=== PATIENT | female | born 1975 | race Caucasian/White ===

== ENCOUNTER 2019-01-16 15:08 | Inpatient (IN) ==
--- NOTE | 2019-01-16 16:26 | Emergency Department Note ---
ED Provider Note CHIEF COMPLAINT: Altered mental status HISTORY OF PRESENT ILLNESS: The patient is a 43 y/o female who presents to the ER because of AMS. The patient is at the [facility]. She has been there a month. Family came yesterday and felt that she was acting unusual. She has a history pyschosis CVA, and depression. She complains of a headache, fevers, chills, diaphoresis, visual changes, neck pain, chest pain, breathing difficulties, nausea, vomiting, abdominal pain, back pain, melena, hematochezia, urinary symptoms, numbness, weakness, . Her escort states this is the first day she noted a headache. The patient has tried the following for relief : she tried tylenol without relief. History is limited secondary to AMS. Pt denies LOC, lymphadenopathy, rash, or other complaints. REVIEW OF SYSTEMS: See HPI for pertinent positives and negatives. A total of ten systems were reviewed and were otherwise negative. PMHx/PSHx: CVA SOCIAL HISTORY: Patient lives with family PHYSICAL EXAM: GENERAL: Awake, alert, anxious-appearing, in no distress HENT: Normocephalic, atraumatic. Oropharynx unremarkable. EYES: PERRL. Normal conjunctiva. Sclera non-icteric. NECK: Inspection normal. Non-tender. Supple. No nuchal rigidity. FROM. No masses. RESPIRATORY: Clear to auscultation. No wheezes. No rales. Normal respiratory effort. CARDIAC: Normal rate. Normal rhythm. No murmurs. No rubs. Extremities warm and well perfused. Pulses equal. No JVD. GI: Soft, non-distended. No tenderness to palpation. No rebound or guarding. No masses. RECTAL: Deferred. MUSCULOSKELETAL: Atraumatic. Chest examination reveals no tenderness. The back is symmetrical on inspection without obvious abnormality. There is no CVA tenderness to palpation. No joint edema. LOWER EXTREMITIES: Calves are equal size bilaterally and non-tender. No edema. No discoloration. NEURO: Confused sensorium. No focal sensory or motor deficits noted. SKIN: No rash or jaundice noted. PSYCH: Tangential. Difficult to direct. No hallucinations. Mildly agitated. MEDICAL DECISION MAKING: Triage Nursing notes reviewed. The patient's presentation and history were concerning for altered mental statu s. Etiologies such as metabolic, infection, hypo/hyperglycemia, electrolyte abnormalities, cardiac sources, intracerebral event, toxicologic, neurologic, psychiatric, as well as others were entertained. Patient was evaluated as above. She was very tangential. She complained of headache and the caregiver noted that her abnormal behavior is been going on for weeks. She was more functional when she first arrived at the [facility] last month. As her mental status changed they did try a med holiday per the caregiver. She seemed to get somewhat better but then her condition deteriorated again. The patient answered yes to every review of systems question. A full metabolic and neurologic work-up was performed. A CT scan of her head was concerning as there were indeterminant findings with cortical abnormality and hypodense focus on the left side. The hypodense focus was in the occipital lobe. Radiology recommended contrast-enhanced MRI. TWELVE-LEAD ECG: Twelve-lead ECG performed and revealed normal sinus rhythm at 91 bpm. Prolonged QT present. Normal axis. No ST elevation. No ST depression. No PACs or PVCs. No ST elevation or depression. No prior for comparison. Imaging studies: Chest x-ray. Findings: A chest x-ray was performed and revealed no pneumothorax, effusion, infiltrate, pulmonary edema, free air under the diaphragm, or wide mediastinum. Impression: No acute disease. CT scan of the head: Per radiology impression: Reveals indeterminate findings requiring contrast-enhanced brain MRI. Limited cortical abnormality could represent age-indeterminate infarct among other possibilities. A round hypodense focus in the left occipital lobe could be artifactual or represent underlying lesion. The patient has an abnormal CT scan of the head and altered mental status that is been going on for some time. She did ask for me to discuss this with her brother Dr. Mustapha Leonard. I did discuss this with him and he was pleased with the work-up. I did inform him that we would be admitting the patient and performing an MRI as well as neurology consultation. He was in agreement. The patient was comfortable with the plan. [facility] was [facility]. The patient was evaluated in the ER and admitted for further management. IMPRESSION: Altered mental status Abnormal brain CT PLAN: Admitted Impression & Plan Altered mental status Past Med/Surg History Social History Preferred Language: Japanese Communication Ability: Effective Litigation Examiner Required: No Beliefs That Will Affect Care: Jainism Jainism Beliefs: Confucianism Current Living Situation: Parent Feels Safe at Home: Yes Safety Concerns: Feels Safe At This Time Smoking Status: Never smoker Hx Alcohol Use: No Hx Substance Use: No Results & Data Vital Signs Vital Signs - 24 hr 01/16/19 15:03 01/16/19 15:54 01/16/19 17:33 Temperature 36.7 C Temperature Source Oral Sepsis Recent Fever Within 48 Hours No Sepsis New/Unexplained Change in Mental Status No Sepsis Action Taken by Nursing No Action Required Pulse Rate 99 H Pulse Rate [Right Finger] 87 Respiratory Rate 20 20 Respiratory Effort / Characteristics Non-Labored Spontaneous Non-Labored Spontaneous Respiratory Depth Normal Normal Respiratory Pattern Regular Regular Blood Pressure 135/71 Blood Pressure [Right Arm] 136/74 Blood Pressure Mean 92 Blood Pressure Mean [Right Arm] 94 Blood Pressure Position Lying Blood Pressure Position [Right Arm] Lying Pulse Oximetry 97 98 96 Oxygen Delivery Method Room Air Room Air Room Air Oxygen Flow Rate 97 Laboratory Data Result diagrams: 01/16/19 16:55 01/16/19 16:55 Lab Results 01/16/19 01/16/19 01/16/19 Range/Units 15:40 16:55 16:55 WBC 6.49 (4.8-10.8) K/uL RBC 3.38 L (4.2-5.4) M/uL Hgb 9.7 L (12.0-16.0) g/dL Hct 31.6 L (37-47) % MCV 93.5 (80-100) fL MCH 28.7 (25-34) pg MCHC 30.7 L (32-36) g/dL RDW Std Deviation 51.1 H (36.4-46.3) fL RDW Coeff of Db 15.0 H (11.5-14.5) % Plt Count 195 (130-400) K/uL MPV 11.3 H (7.4-10.4) fL Immature Gran % (Auto) 0.2 % Neut % (Auto) 57.1 % Lymph % (Auto) 33.0 % Alexander % (Auto) 9.7 % Eos % (Auto) 0.0 % Baso % (Auto) 0.0 % Immature Gran # (Auto) 0.01 (0.00-0.02) K/uL Neut # (Auto) 3.71 (1.4-6.5) K/uL Lymph # (Auto) 2.14 (1.2-3.4) K/uL Alexander # (Auto) 0.63 H (0.11-0.59) K/uL Eos # (Auto) 0.00 (0-0.5) K/uL Baso # (Auto) 0.00 (0-0.2) K/uL Sodium 142 (136-145) mmol/L Potassium 3.8 (3.5-5.1) mmol/L Chloride 107 (98-107) mmol/L Carbon Dioxide 27 (21-32) mmol/L Anion Gap 8.0 (3-11) BUN 22 H (7-18) mg/dl Creatinine 0.75 (0.6-1.2) mg/dl Est Cr Clr Drug Dosing 95.0 ml/min Est GFR ( Amer) 111.6 Est GFR (Non-Af Amer) 96.3 BUN/Creatinine Ratio 29.2 H (10-20) Glucose 87 (70-99) mg/dl POC Glucose 108 H (70-99) Calcium 8.8 (8.5-10.1) mg/dl Total Bilirubin 0.3 (0.2-1) mg/dl AST 13 L (15-37) U/L ALT 18 (12-78) U/L Alkaline Phosphatase 69 (45-117) U/L Troponin I < 0.015 (0-0.045) ng/ml Total Protein 6.7 (6.4-8.2) gm/dl Albumin 3.1 L (3.4-5.0) gm/dl Globulin 3.6 (2.5-4.0) gm/dl Albumin/Globulin Ratio 0.9 (0.9-2) TSH 1.130 (0.300-4.500) uIu/ml Urine Color Urine Appearance (Clear) Urine pH (4.5-7.5) Ur Specific [place] (1.000-1.030) Urine Protein (Negative) Urine Glucose (UA) (Negative) Urine Ketones (Negative) Urine Blood (Negative) Urine Nitrite (Negative) Urine Bilirubin (Negative) Urine Urobilinogen (Negative) Ur Leukocyte Esterase (Negative) 01/16/19 Range/Units 18:32 WBC (4.8-10.8) K/uL RBC (4.2-5.4) M/uL Hgb (12.0-16.0) g/dL Hct (37-47) % MCV (80-100) fL MCH (25-34) pg MCHC (32-36) g/dL RDW Std Deviation (36.4-46.3) fL RDW Coeff of Db (11.5-14.5) % Plt Count (130-400) K/uL MPV (7.4-10.4) fL Immature Gran % (Auto) % Neut % (Auto) % Lymph % (Auto) % Alexander % (Auto) % Eos % (Auto) % Baso % (Auto) % Immature Gran # (Auto) (0.00-0.02) K/uL Neut # (Auto) (1.4-6.5) K/uL Lymph # (Auto) (1.2-3.4) K/uL Alexander # (Auto) (0.11-0.59) K/uL Eos # (Auto) (0-0.5) K/uL Baso # (Auto) (0-0.2) K/uL Sodium (136-145) mmol/L Potassium (3.5-5.1) mmol/L Chloride (98-107) mmol/L Carbon Dioxide (21-32) mmol/L Anion Gap (3-11) BUN (7-18) mg/dl Creatinine (0.6-1.2) mg/dl Est Cr Clr Drug Dosing ml/min Est GFR ( Amer) Est GFR (Non-Af Amer) BUN/Creatinine Ratio (10-20) Glucose (70-99) mg/dl POC Glucose (70-99) Calcium (8.5-10.1) mg/dl Total Bilirubin (0.2-1) mg/dl AST (15-37) U/L ALT (12-78) U/L Alkaline Phosphatase (45-117) U/L Troponin I (0-0.045) ng/ml Total Protein (6.4-8.2) gm/dl Albumin (3.4-5.0) gm/dl Globulin (2.5-4.0) gm/dl Albumin/Globulin Ratio (0.9-2) TSH (0.300-4.500) uIu/ml Urine Color Yellow Urine Appearance Clear (Clear) Urine pH 6.5 (4.5-7.5) Ur Specific [place] 1.019 (1.000-1.030) Urine Protein Negative (Negative) Urine Glucose (UA) Negative (Negative) Urine Ketones Negative (Negative) Urine Blood Negative (Negative) Urine Nitrite Negative (Negative) Urine Bilirubin Negative (Negative) Urine Urobilinogen Negative (Negative) Ur Leukocyte Esterase Negative (Negative) Administered Medications Acetaminophen (Tylenol) 650 mg PO Q4H PRN PRN Reason: Pain or Fever Stop: 02/15/19 21:34 Last Admin: 01/16/19 22:40 Dose: 650 mg Documented by: [id number] Hydrocodone Bitart/Acetaminophen ([place] 5/325) 1 tab PO Q6H MARIANN Stop: 01/30/19 21:59 Last Admin: 01/16/19 22:24 Dose: 1 tab Documented by: [id number] Aripiprazole (Abilify) 15 mg PO HS MARIANN Stop: 02/15/19 21:34 Last Admin: 01/16/19 22:24 Dose: 15 mg Documented by: [id number] Benztropine Mesylate (Cogentin) 1 mg PO BID MARIANN Stop: 02/15/19 21:34 Last Admin: 01/16/19 22:24 Dose: 1 mg Documented by: [id number] Diphenhydramine HCl (Benadryl Capsule) 50 mg PO HS PRN PRN Reason: agitation Stop: 02/15/19 21:34 Last Admin: 01/16/19 22:40 Dose: 50 mg Documented by: [id number] Escitalopram Oxalate (Lexapro Tab) 30 mg PO HS MARIANN Stop: 02/15/19 21:44 Last Admin: 01/16/19 22:23 Dose: 30 mg Documented by: [id number] Ferrous Sulfate (Feosol) 325 mg PO BID MARIANN Stop: 02/15/19 21:34 Last Admin: 01/16/19 22:25 Dose: 325 mg Documented by: [id number] Lorazepam (Ativan) 1 mg PO TID MARIANN Stop: 02/15/19 21:34 Last Admin: 01/16/19 22:42 Dose: 1 mg Documented by: [id number] Discharge Plan Visit Data *Final* Discharge Date/Time: 01/16/19 20:54 Chief Complaint: Altered Mental Status Stated Complaint: CONFUSION ED Provider: Jose Randle Discharge Problem: Altered mental status Patient Disposition: Admitted As Inpatient Discharge Instructions Interventions: ED Discharge Assessment Last Done: 01/16/19 20:54
--- NOTE | 2019-01-16 16:42 | XRay Report ---
XR chest 1V portable CLINICAL HISTORY: 43 years-old Female presenting with weakness. TECHNIQUE: Portable upright AP view of the chest was obtained. COMPARISON: None. FINDINGS: Cardiac silhouette top normal in size likely related to AP technique. No focal opacity. No large effu miguel or pneumothorax. Osseous structures normal. Upper abdomen normal. IMPRESSION: 1. No acute cardiopulmonary disease. Electronically signed by: Reyes Hernandez M.D. 01/16/2019 4:40 PM
--- NOTE | 2019-01-16 16:52 | CT Scan Report ---
CT head/brain wo con CLINICAL HISTORY: 43 years-old Female presenting with AMS. TECHNIQUE: Multidetector CT imaging of the head was performed without the use of intravenous contrast . IV contrast: None. One or more dose lowering techniques were used consistent with the principles of ALARA (as low as reasonably achievable), including automatic exposure control, mA or kV adjustment t o individual patient size, and/or use of iterative reconstruction. COMPARISON: None. CT DOSE (mGy.cm): The estimated cumulative dose is 537.48 mGy.cm. FINDINGS: Provider Relations Coordinator topogram: Unremarkable. Ventricles and sulci normal in size. No hemorrhage. Limited cortical infarct in the posterior left te mporal occipital region. The acuity of this is uncertain as there is no associated ex vacuo dilatatio n of the atrium of the left lateral ventricle. A separate round hypodense focus is noted in the left occipital lobe (series 2 image 11), which is subcentimeter. No mass effect or midline shift. No extra -axial fluid collection. Paranasal sinuses and mastoid air cells clear. Calvarium intact. IMPRESSION: 1. Indeterminate findings require contrast-enhanced brain MRI. Limited cortical abnormality could re present an age-indeterminate infarct among other possibilities. Round hypodense focus in the left occ ipital lobe could be artifactual or represent an underlying lesion. 2. No hemorrhage. Electronically signed by: Reyes Hernandez M.D. 01/16/2019 4:51 PM
[2019-01-16 17:30] LABS: Hematocrit (blood only) 31.6 % (37-47); Hemoglobin 9.7 g/dL (12.0-16.0); Immature Granulocytes # (auto) 0.01 K/uL (0.00-0.02); Immature Granulocytes % (auto) 0.2 %; Lymphocytes # (auto) 2.14 K/uL (1.2-3.4); Mean Corpuscular Hemoglobin 28.7 pg (25-34); Mean Corpuscular Hgb Conc 30.7 g/dL (32-36); Mean Corpuscular Volume 93.5 fL (80-100); Mean Platelet Volume 11.3 fL (7.4-10.4); Monocytes # (auto) 0.63 K/uL (0.11-0.59); Monocytes % (auto) 9.7 %; Neutrophils # (auto) 3.71 K/uL (1.4-6.5); Neutrophils % (auto) 57.1 %; Platelet Count 195 K/uL (130-400); RDW Standard Deviation 51.1 fL (36.4-46.3); Red Blood Count 3.38 M/uL (4.2-5.4); White Blood Count 6.49 K/uL (4.8-10.8)
[2019-01-16 17:44] LABS: Alanine Aminotransferase 18 U/L (12-78); Albumin Level 3.1 gm/dl (3.4-5.0); Aspartate Aminotransferase 13 U/L (15-37); BUN Creatinine Ratio 29.2 (10-20); Blood Urea Nitrogen 22 mg/dl (7-18); Calcium 8.8 mg/dl (8.5-10.1); Carbon Dioxide 27 mmol/L (21-32); Chloride 107 mmol/L (98-107); Est GFR (African American) 111.6; Est GFR (Non-African American) 96.3; Glucose 87 mg/dl (70-99); Potassium 3.8 mmol/L (3.5-5.1); Sodium 142 mmol/L (136-145)
[2019-01-16 17:55] LABS: Albumin Globulin Ratio 0.9 (0.9-2); Alkaline Phosphatase 69 U/L (45-117); Bilirubin,Total 0.3 mg/dl (0.2-1); Globulin 3.6 gm/dl (2.5-4.0); Total Protein 6.7 gm/dl (6.4-8.2); Troponin I < 0.015 ng/ml (0-0.045)
[2019-01-16 19:09] LABS: Appearance Urine Clear (Clear); Bilirubin Urine Negative (Negative); Blood Urine Negative (Negative); Color Urine Yellow; Glucose Urine UA Negative (Negative); Ketones Urine Negative (Negative); Leukocyte Esterase Urine Negative (Negative); Nitrite Urine Negative (Negative); Protein Urine Negative (Negative); Specific Gravity Urine 1.019 (1.000-1.030); Urobilinogen Urine Negative (Negative); pH Urine 6.5 (4.5-7.5)
[2019-01-16] MEDS ORDERED: NITROGLYCERIN SL 0.4 MG/TAB TAB SL PRN (21:35)
[2019-01-16] MEDS ORDERED: ALBUTEROL HFA 8 GM INHALER INH PRN (21:35)
[2019-01-16] MEDS: ESCITALOPRAM OXALATE 10 MG TAB PO SCH (22:23)
[2019-01-16] MEDS: ARIPiprazole 15 MG TAB PO SCH (22:24)
[2019-01-16] MEDS: BENZTROPINE MESYLATE 1 MG TAB PO SCH (22:24)
[2019-01-16] MEDS: HYDROCODONE/ACETAMOPHEN 5/325MG TAB PO SCH (22:24)
[2019-01-16] MEDS: FERROUS SULFATE 325 MG TAB PO SCH (22:25)
[2019-01-16] MEDS: LORazepam 1 MG TAB PO SCH ×2 (22:27→22:42)
[2019-01-16] MEDS: ACETAMINOPHEN 325 MG TAB PO PRN (22:40)
--- NOTE | 2019-01-16 23:51 | History and Physical Report ---
DATE OF ADMISSION: 01/16/2019 CHIEF COMPLAINT: Confusion. HISTORY OF PRESENT ILLNESS: This is a 43-year-old female with past medical history significant for fibromyalgia, asthma, thoracic outlet syndrome, reflux sympathetic dystrophy, irritable bowel syndrome, history of anemia, unclear etiology, history of head trauma as a child, history of cerebrovascular accident in 2018, was brought in from [facility] because of confusion. As per brother who is a psychiatrist, the patient had stroke in 2018. She has some aphasia from the stroke, but otherwise, she has no residual weakness. She drives the car. She used to live with her parents. She was doing fine until 6 months ago. She used to have some migraines, from her stroke, she used to treat with Imitrex. Then she started developing paranoia and some confusion. She was seen by neurologist. Brain scan was done. At that time, they thought there was no new stroke and she was evaluated by psychiatry and at that time she got admitted to the [facility] in early weeks of November. In the [facility],because she was getting more confused, they cut down on her medications, but then seemed to be improved, but again she got more confused. Her brother went to see her yesterday. Yesterday, she was getting more paranoid thinking and more delusional with auditory and visual delusions. He was worried about hydrocephalus. She was also having some ambulatory dysfunction. She was having a shuffling gait.And she was brought here for further evaluation. As per brother, she recently also had anemia with hemoglobin of 8, they could not find a cause and started her on iron supplement so her hemoglobin came up at more than 9. Because of anemia, aspirin was stopped. Lipitor was stopped because of thought of statin causing some dementia. Recently, she was also started on Abilify .As per brother patient still on Cogentin. Question of not getting thyroid medication at [facility] but thyroid stimulating hormone level is normal here in the hospital. The patient is alert and awake, oriented to name and place, Knows her birthday.But could not tell the dates .Keeps on talking about her parents.Patient states that she has headaches and she has been on Imitrex but that was not given to her at [facility].. She states she has fibromyalgia. She has pain all over and she wants pain medications. She keeps on talking somewhat tangentially. She is not focused to answer the questions. She states she has asthma. It gets activated when she inhales strong perfumes or scents. Her appetite is good and she is eating fine. No difficulty swallowing. She states she has some dry cough and some mild postnasal drip. She complains of both the knee pains. As per the caregiver also she is having ambulatory dysfunction with knee pain. No recent fever or chills. When asked about other symptoms, she talks about her parents. So, I could not get much history from the patient. Most of the history we got from the brother and the caregiver. Currently resting comfortably and hemodynamically stable. ALLERGIES: IODINE, RED DYE AND LATEX. PAST MEDICAL HISTORY: As mentioned above. PAST SURGICAL HISTORY: She has had hysterectomy because of heavy bleeding a couple of years ago, bilateral knee surgeries and right-sided rib taken out. MEDICATIONS: Currently, she is on Abilify 15 mg p.o. at bedtime, lorazepam, chlorpromazine 100 mg p.o. p.r.n., Cogentin 1 mg p.o. b.i.d., Benadryl 50 mg p.o. p.r.n., Lexapro 30 mg p.o. at bedtime, ferrous sulfate 325 mg p.o. b.i.d., hydrocodone/acetaminophen 1 tablet p.o. q. 6 hours p.r.n., Synthroid 50 mcg p.o. daily, Ativan 1 mg p.o. t.i.d., Protonix 40 mg p.o. daily and Topamax 100 mg p.o. daily. FAMILY HISTORY: Noncontributory. REVIEW OF SYSTEMS: As per HPI. Rest of the review of symptoms could not be obtained as the patient is somewhat confused. PHYSICAL EXAMINATION: GENERAL: The patient is alert and awake, oriented to name and place only. VITAL SIGNS: Temperature 36.7, pulse 87, respiratory rate 20, blood pressure 136/74 and oxygen 96% on room air. HEENT: No pallor. No icterus. Pupils are sluggish to react to light. NECK: No JVD. No neck masses. No carotid bruits. Supple. CARDIOVASCULAR: S1, S2 heard. Murmur in aortic area is heard. LUNGS: Clear to auscultation bilaterally. No accessory muscle use. No wheezing. No crackles. ABDOMEN: Soft. Bowel sounds present. No distention. No guarding. No rigidity. CENTRAL NERVOUS SYSTEM: Alert and awake and oriented x2. Moves extremities. No pronator drift. Coordination of movements normal. Elyzbs-wl-[id number] test normal. Klru-nb-asif test. Position sense intact. Sensation is intact. EXTREMITIES: No edema. No erythema. LABORATORY DATA: WBC 6.4, hemoglobin 9.7, hematocrit 37.6 and platelets 195. Sodium 142, potassium 3.8, chloride 107, bicarbonate 27, BUN 22, creatinine 0.7, serum glucose 87, calcium 8.8, total bilirubin 0.3, AST 13, ALT 18 and alkaline phosphatase 169. Troponin I less than 0.015. Thyroid stimulating hormone 1.1. Urinalysis negative. Chest x-ray, no acute cardiopulmonary process seen. Electrocardiogram, normal sinus rhythm with rate of 90, no acute ST-T wave seen, prolonged QTC of 487. CT of the head indeterminate findings could represent an age indeterminate infarct among other possibilities, hypodense focus in the left occipital lobe could be artifactual or represent an underlying lesion, no hemorrhage. ASSESSMENT AND PLAN: This 43-year-old female with a history of depression, anxiety, possible paranoia who is currently at [facility] since early November who was brought in because of her brother who is a psychiatrist found the patient to be more confused, paranoid and delusional with auditory and visual delusions for further evaluation. 1. Confusion, encephalopathy, talking tangentially, history of depression and anxiety and paranoia in [facility] since early November . Medications are adjusted but but as she was getting more confused and delusional, brother who is a psychiatrist advised to get further evaluation. CT scan showed questionable new lesions, hypodense lesion in the occipital lobe and recommended MRI scan with contrast which we will do. The patient and brother are agreeable. We will continue current medications and we will consult psychiatry and neurology in a.m. for further recommendations or evaluations. Recently, her B1 levels were done as an outpatient were okay and her thyroid stimulating hormone level was fine.Ammonia levels were fine. One- one observation. 2. History of stroke, was on statin, lisinopril and aspirin in the past but aspirin was stopped because of anemia and statin was stopped because of questionable dementia. We will await Neurology evaluation. 3. Hypothyroidism, continue Synthroid. 4. Fibromyalgia and chronic pain,. On pain meds. 5. Anemia, etiology unclear. We will continue iron supplements for now. Had hysterectomy about couple of years ago secondary to bleeding as per brother.Will check Hemoccult 6. Depression, continue Lexapro. 7. Gastroesophageal reflux disease, continue Protonix. 8. Anxiety, continue Ativan. 9. Migraines, on Topamax, but trying to taper it as it can cause anemia as per brother.. 10. Deep venous thrombosis prophylaxis, sequential compression devices for now. 11. Disposition, admit to Med/Surg Tele. Level 1 full code. Social Service to help with discharge planning. Addendum: Non sustained v.tach. Will follow am labs. Ordered echo. Continue tele monitoring. MTDD
[2019-01-17] MEDS ORDERED: INFLUENZA ADMINISTRATION CHARGE ONE (01:00)
[2019-01-17] MEDS ORDERED: INFLUENZA VIRUS QUAD VACCINE 0.5 ML SYR IM ONE (01:00)
[2019-01-17] MEDS: HYDROCODONE/ACETAMOPHEN 5/325MG TAB PO SCH ×5 (04:00→22:51)
[2019-01-17] MEDS: ACETAMINOPHEN 325 MG TAB PO PRN (04:00)
[2019-01-17 06:10] LABS: Hemoglobin 9.2 g/dL (12.0-16.0); Immature Granulocytes # (auto) 0.01 K/uL (0.00-0.02); Immature Granulocytes % (auto) 0.2 %; Lymphocytes # (auto) 1.52 K/uL (1.2-3.4); Mean Corpuscular Hemoglobin 28.9 pg (25-34); Mean Corpuscular Hgb Conc 31.7 g/dL (32-36); Mean Corpuscular Volume 91.2 fL (80-100); Mean Platelet Volume 9.9 fL (7.4-10.4); Monocytes # (auto) 0.66 K/uL (0.11-0.59); Monocytes % (auto) 10.8 %; Platelet Count 199 K/uL (130-400); RDW Coefficient of Variation 14.8 % (11.5-14.5); RDW Standard Deviation 49.5 fL (36.4-46.3); Red Blood Count 3.18 M/uL (4.2-5.4); White Blood Count 6.09 K/uL (4.8-10.8)
[2019-01-17] MEDS: LEVOTHYROXINE SODIUM 50 MCG TABLET PO SCH (06:40)
[2019-01-17] MEDS: POLYETHYLENE (MIRALAX) 17 GM PACK PO PRN (06:45)
[2019-01-17 06:50] LABS: BUN Creatinine Ratio 27.4 (10-20); Calcium 8.8 mg/dl (8.5-10.1); Est GFR (African American) 123.6; Est GFR (Non-African American) 106.7; Potassium 3.6 mmol/L (3.5-5.1)
[2019-01-17] MEDS: BENZTROPINE MESYLATE 1 MG TAB PO SCH ×2 (08:10→20:21)
[2019-01-17] MEDS: LORazepam 1 MG TAB PO SCH ×3 (08:22→20:21)
[2019-01-17] MEDS: FERROUS SULFATE 325 MG TAB PO SCH ×2 (08:22→20:21)
[2019-01-17] MEDS: PANTOprazole 40 MG TAB PO SCH (08:23)
[2019-01-17] MEDS: TOPIRAMATE 100 MG TAB PO SCH (08:23)
--- NOTE | 2019-01-17 08:28 | Hospitalist Progress Note ---
Date of Service January 17, 2019 Subjective BROTHER'S NAME: DR.DAVID SUHAS CAMARGO (PSYCHIATRIST) CELL NO: [phone] PAGER NO: [phone]. Results & Data Vital Signs (Past 12 Hours) Vital Signs Temp Pulse Pulse Resp BP BP Pulse Ox 01/17/19 07:54 36.7 C 80 24 121/76 96 01/16/19 23:35 36.6 C 90 18 144/74 H 97 01/16/19 22:37 36.8 C 97 H 16 120/75 97 01/16/19 22:23 96 H 01/16/19 21:46 99 H
--- NOTE | 2019-01-17 08:28 | Hospitalist Progress Note ---
Date of Service January 17, 2019 Subjective Brothers name: Dr. Mustapha Leonard MD(psychiatrist) ph no: cell no: [phone] PAGER NO: [phone]. Results & Data Vital Signs (Past 12 Hours) Vital Signs Temp Pulse Pulse Resp BP BP Pulse Ox 01/17/19 07:54 36.7 C 80 24 121/76 96 01/16/19 23:35 36.6 C 90 18 144/74 H 97 01/16/19 22:37 36.8 C 97 H 16 120/75 97 01/16/19 22:23 96 H 01/16/19 21:46 99 H
--- NOTE | 2019-01-17 13:40 | Psychiatric Consultation ---
Date of Consultation January 17, 2019 Impression / Recommendations Impression 43-year-old female admitted medically on 01/16/2019 after presenting to the ED from the [facility]. It was reported that the patient has been hospitalized [facility] for over a month, and family grew concerned about patient "acting unusual." Psychiatric consultation is requested to evaluate patient for altered mental status, given recent history of psychiatric treatment. Patient is a rather poor historian, preoccupied with concerns that this provider is not able to predict her favorite animal and that this provider did not "pass the test." Patient is highly labile and tangential. Psychiatric nurse liaison was able to speak with staff from the [facility] regarding her history of treatment. It is reported that the patient had presented to their facility with confusion and paranoia. They report that she was already "altered" when she presented to their facility, and had no response to various medication trials. Patient had been tried on haloperidol, bupropion, quetiapine, and venlafaxine -all with little benefit. It was reported the patient was given a "medication holiday" after multiple failed medication trials. It is reported that her condition improved slightly with only as needed use of chlorpromazine. This improvement was not sustained, and she further decompensated, leading to initiation of aripiprazole on 01/08/2019. Concerns for a more significant issue were increased when patient had frequent episodes of incontinence of bowel and bladder, was increasingly confused, and demonstrated changes in her ambulatory function and gait. Pt is on several psychiatric medications that are centrally acting and could reasonably lead to confusion. The concern at this time, is that we do not have a clear timeline of when the change in her mental status began, as it seems to predate her admission to the [facility]. We will attempt to gather additional information from outpatient supports in order to better determine potential causes for her altered mental status. Agree with neurology consultation for recommendations as well. Patient is a poor historian; however, there are reports of olfactory and visual hallucinations which generally predict a more organic etiology for mental status change. At this time, we would recommend continuing her current medication regimen as initiated at [place]. We will continue attempts to gather collateral information, and provide additional recommendations as they are available. Ultimately, discharge plan would be for patient to return back to the [facility] after she is medically cleared, in order to obtain her belongings and be formally discharged from their facility. We appreciate the opportunity to participate in the care of this patient. Please reach out to our service with any additional questions. Dr. Ct Urena was directly involved in review and discussion of the patient's case and participated in medical decision making regarding treatment recommendations. Psych History Identifying Data 43-year-old female admitted medically on 01/16/2019 after [facility] ED [facility]. It was reported that family had noticed unusual changes in the patient, and were concerned about other medical concerns leading to her confusion and altered state. Psychiatric consultation was requested to evaluate the patient for altered mental status, in light of ongoing inpatient psychiatric treatment. Reliable, but limited, history is obtained from hospital documentation. The patient herself is a poor historian and not able to offer additional details at time of encounter. Chief Complaint "I'm doing ok. Have a seat, we can all just hang out." History of Present Illness Jess Leonard is a 43-year-old female admitted medically on 01/16/2019 after presenting to the ED from the [facility]. ED documentation suggest the family had been visiting the patient and was concerned about unusual behaviors and confusion. Family had requested transfer to a medical facility for further workup. Patient is not able to provide reliable history at this time; however, hospital documentation has been reviewed. Upon entering patient's room, she is found to be speaking comfortably with her one-to-one aide. Patient invites this provider to sit with them and talks more. Patient states that she is not aware as to why she was admitted, but does know that she had been hospitalized at the [facility] prior to coming to the hospital. She is unaware of how long she has been at the [facility]. Patient is rather tangential during our conversation, often interrupting this provider with request that this provider squeeze a stress ball that has been provided to her. Patient informs this provider that when she squeezes the stress ball it says "bull sh*t." This provider stated that although she believes that the patient hears this, this provider does not hear the same response to squeezing the stress ball. Patient becomes abruptly tearful and upset stating "you do not believe me, you do not believe me." This provider's attempted to console the patient, which did not not offer much benefit. Between a one-to-one aide and this provider, multiple attempts were made to assist patient with calming her breathing and participating in a clear conversation. Patient states that she has a group of friends she calls "[employer]", she becomes abruptly irritable when this provider states she is not sure what that is and asks the patient to explain more. Patient states that this is a group of people that she talks to online, but is unwilling to provide any additional information. The patient suddenly request that her brother be called in the presence of this provider, was not able to understand that this provider did not have a release or her brother's phone number at that moment in time. Patient was asked at that time if she had signed a release for us to speak with her brother, to which she becomes rather angry stating "he has signed the hippo, and I am a zebra." She begins to tell this provider that zebras are black if you "rub them the other way." She then demands her belongings, showing this provider a T-shirt with an iguana pictured on the front. As if quizzing this provider, she demands to know "if you could be any animal, what would it be? And tell me why. And tell me what color. Then tell me what animal I would be." This provider attempted to answer the patient's question, and asked the patient what animal she would be. Patient becomes acutely angry and upset, telling her one-to-one aide that this provider "did not pass the test." She continues to request to return to the [facility], stating "I want to go back there. That is where my dad is. I miss him so much." Patient remained labile, demonstrating tearfulness, anger, and anxiety during the remainder of our visit. As it was clear this provider's questions were upsetting the patient, this provider decided to end the session. Past Psychiatric History Previous Psych History: Patient psychiatric history is largely unclear. It is believed that patient may have diagnoses of anxiety and depression; however, there is no reported history of behaviors similar to what she is now presenting with. Allergies Allergy/AdvReac Type Severity Reaction Status Date / Time Iodine and Iodide Containing Allergy Severe Anaphylaxis Unverified 01/17/19 11:00 Produc red dye Allergy Severe Anaphylaxis Unverified 01/17/19 11:02 latex Allergy Intermediate Rash Unverified 01/17/19 11:02 shellfish derived Allergy Intermediate Rash Unverified 01/17/19 11:02 Home Medications Home Medications Medication Instructions Recorded Confirmed Type Cogentin 1 mg PO BID 01/16/19 01/16/19 History aripiprazole [Abilify] 15 mg PO HS 01/16/19 01/16/19 History chlorpromazine 100 mg PO DIRECTED PRN 01/16/19 01/16/19 History diphenhydramine HCl [Benadryl] 50 mg PO DIRECTED PRN 01/16/19 01/16/19 History escitalopram oxalate 30 mg PO HS 01/16/19 01/16/19 History ferrous sulfate 325 mg PO BID 01/16/19 01/16/19 History hydrocodone-acetaminophen [[place]] 1 tab PO Q6H 01/16/19 01/16/19 History levothyroxine [Synthroid] 50 mcg PO DAILY 01/16/19 01/16/19 History lorazepam 1 mg PO TID 01/16/19 01/16/19 History pantoprazole [Protonix] 40 mg PO DAILY 01/16/19 01/16/19 History topiramate 100 mg PO DAILY 01/16/19 01/16/19 History Family History It is reported that the patient's father may have been diagnosed with schizophrenia Substance Abuse History It is reported the patient denied substance use Patient History Social History Preferred Language: Andorran Communication Ability: Effective Crm Specialist Required: No Beliefs That Will Affect Care: Denominational Denominational Beliefs: Scientologist Current Living Situation: Parent Feels Safe at Home: Yes Safety Concerns: Feels Safe At This Time Smoking Status: Never smoker Hx Alcohol Use: No Hx Substance Use: No Physical Exam Psychiatric: Orientation: alert, oriented to person and oriented to place; + uncooperative Patient does not appear to be oriented to time or event Apperance: appropriately dressed (In hospital gown), + disheveled and appeared stated age Obese appearing female, appearing rather anxious during assessment. Patient is appropriately dressed for setting, wearing a hospital gown. She is seated in a bedside chair. Patient appears disheveled, with likely less than ideal hygiene. Her hair is pulled back in a messy ponytail. Eye Contact: + fair eye contact Motor Behavior: + psychomotor agitation (Patient is appearing restless and anxious, frequently repositioning in chair) Speech: + loud speech (With irritable and angry tone) Affect: + anxious affect, + tearful affect, + labile affect and + angry affect Mood: + anxious mood ("My meds are all wrong, I had an anxiety attack") Thought Process: + tangential thought process; + thought process not goal directed, + thought process not linear or logical and + thought process not clear or coherent Thought processes highly disorganized Unable to gather significant history regarding presence of hallucinations due to patient's limited cooperation during assessment. Visual, auditory, and olfactory hallucinations were reported in prior documentation. Cognition: language grossly intact; + remote memory not intact and + attention not intact Insight: + impaired insight Judgement: + impaired judgement Vital Signs (Past 24 Hours): Last Vital Signs Temp 36.6 C 01/17/19 11:34 Pulse 89 01/17/19 11:34 Resp 24 01/17/19 11:34 BP 120/69 01/17/19 11:34 Pulse Ox 97 01/17/19 11:34 Review of Systems Constitutional: denied Cardiovascular: denied Respiratory: reports shortness of breath, as conversation is making her visibly upset Gastrointestinal: denied Neurological: denied Psychiatric: denies symptoms other than stated above Total of at least 10 systems reviewed, pertinent positives as above and in HPI. Results & Data Medications Administered Acetaminophen (Tylenol) 650 mg PO Q4H PRN PRN Reason: Pain or Fever Stop: 02/15/19 21:34 Last Admin: 01/17/19 04:00 Dose: 650 mg Documented by: [id number] Admin: 01/16/19 22:40 Dose: 650 mg Documented by: [id number] Hydrocodone Bitart/Acetaminophen (Fordyce 5/325) 1 tab PO Q6H MARIANN Stop: 01/30/19 21:59 Last Admin: 01/17/19 11:23 Dose: 1 tab Documented by: [id number] Admin: 01/17/19 04:00 Dose: 1 tab Documented by: [id number] Admin: 01/16/19 22:24 Dose: 1 tab Documented by: [id number] Aripiprazole (Abilify) 15 mg PO HS MARIANN Stop: 02/15/19 21:34 Last Admin: 01/16/19 22:24 Dose: 15 mg Documented by: [id number] Benztropine Mesylate (Cogentin) 1 mg PO BID MARIANN Stop: 02/15/19 21:34 Last Admin: 01/17/19 08:10 Dose: Not Given Documented by: [id number] Admin: 01/16/19 22:24 Dose: 1 mg Documented by: [id number] Diphenhydramine HCl (Benadryl Capsule) 50 mg PO HS PRN PRN Reason: agitation Stop: 02/15/19 21:34 Last Admin: 01/16/19 22:40 Dose: 50 mg Documented by: [id number] Escitalopram Oxalate (Lexapro Tab) 30 mg PO HS MARIANN Stop: 02/15/19 21:44 Last Admin: 01/16/19 22:23 Dose: 30 mg Documented by: [id number] Ferrous Sulfate (Feosol) 325 mg PO BID MARIANN Stop: 02/15/19 21:34 Last Admin: 01/17/19 08:22 Dose: 325 mg Documented by: [id number] Admin: 01/16/19 22:25 Dose: 325 mg Documented by: [id number] Levothyroxine Sodium (Synthroid) 50 mcg PO DAILYBB MARIANN Stop: 02/16/19 06:29 Last Admin: 01/17/19 06:40 Dose: 50 mcg Documented by: [id number] Lorazepam (Ativan) 1 mg PO TID MARIANN Stop: 02/15/19 21:34 Last Admin: 01/17/19 13:14 Dose: 1 mg Documented by: [id number] Admin: 01/17/19 08:22 Dose: 1 mg Documented by: [id number] Admin: 01/16/19 22:42 Dose: 1 mg Documented by: [id number] Pantoprazole Sodium (Protonix) 40 mg PO DAILY MARIANN Stop: 02/16/19 08:59 Last Admin: 01/17/19 08:23 Dose: 40 mg Documented by: [id number] Polyethylene Glycol (Miralax Powder Packet) 17 gm PO DAILY PRN PRN Reason: Constipation Stop: 02/15/19 21:34 Last Admin: 01/17/19 06:45 Dose: 17 gm Documented by: [id number] Topiramate (Topamax) 100 mg PO DAILY MARIANN Stop: 02/16/19 08:59 Last Admin: 01/17/19 08:23 Dose: 100 mg Documented by: [id number] Coding Level of Care Code 85625 U Intl Hosp Care Lvl 2
--- NOTE | 2019-01-17 14:09 | Neurology Consultation ---
Date of Consultation January 17, 2019 Assessment & Plan (1) Altered mental status: 1. MRI brain with and without ordered 2. psychiatry for evaluation of medications - will stay on current medications for now 3. PT/OT speech for any discharge needs 4. aid for patient safety 5. not sure what her baseline is but she is very tangential with conversion. 6. may need to restart aspirin 81 mg -plt 199 7. further recommendations after MRI Supervising Physician Co-Signing Physician Notes I have seen and discussed above patient with Dr Sarah Granger, neurology See my note of today.BRANDEE Granger MD History of Present Illness Reason for Consultation: [facility] Requesting Physician: Henok Moncada MD Attending Physician: Henok Moncada MD History of Present Illness Jess is a 43 year old female with PMH of fibromyalgia, asthma, thoracic outlet syndrome, reflux sympathetic dystrophy, irritable bowel syndrome, anemia, history of head trauma as a child, CVA in 2017, was transferred here from the [facility] because of confusion. She drives the car and was doing fine until 6 months ago when she developed some paranoia and some confusion. She had an evaluation by neurology and psychiatry and was admitted to the [facility] in early weeks of November. She was getting more confused and some of her medications were decreased but she didn't improve. She was delusional and had a shuffling gait. She was on aspirin since the previous stroke but that was stopped due to some anemia and Lipitor due to some dementia symptoms. She is currently sitting bedside and eating lunch there is an aid in the room with her. When asked why she is here she talks very tangentially recalling being at [facility]. denies CP, SOB, abdominal pain, one sided weakness, numbness tingling, N, V, swallowing issues, vision changes. She states she hurts all over because of her fibromyalgia. Allergies Allergy/AdvReac Type Severity Reaction Status Date / Time Iodine and Iodide Containing Allergy Severe Anaphylaxis Unverified 01/17/19 11:00 Produc red dye Allergy Severe Anaphylaxis Unverified 01/17/19 11:02 latex Allergy Intermediate Rash Unverified 01/17/19 11:02 shellfish derived Allergy Intermediate Rash Unverified 01/17/19 11:02 Home Medications Home Medications Medication Instructions Recorded Confirmed Type Cogentin 1 mg PO BID 01/16/19 01/16/19 History aripiprazole [Abilify] 15 mg PO HS 01/16/19 01/16/19 History chlorpromazine 100 mg PO DIRECTED PRN 01/16/19 01/16/19 History diphenhydramine HCl [Benadryl] 50 mg PO DIRECTED PRN 01/16/19 01/16/19 History escitalopram oxalate 30 mg PO HS 01/16/19 01/16/19 History ferrous sulfate 325 mg PO BID 01/16/19 01/16/19 History hydrocodone-acetaminophen [[place]] 1 tab PO Q6H 01/16/19 01/16/19 History levothyroxine [Synthroid] 50 mcg PO DAILY 01/16/19 01/16/19 History lorazepam 1 mg PO TID 01/16/19 01/16/19 History pantoprazole [Protonix] 40 mg PO DAILY 01/16/19 01/16/19 History topiramate 100 mg PO DAILY 01/16/19 01/16/19 History Patient History Social History Preferred Language: Hebrew Communication Ability: Effective Echo Technologist Required: No marital status: Single Current Living Situation: Parent Feels Safe at Home: Yes Safety Concerns: Feels Safe At This Time Smoking Status: Never smoker Hx Alcohol Use: No Hx Substance Use: No Physical Exam Physical Exam: Physical Exam: Constitutional: appearance over nourished, healthy Ears, Nose, Mouth and Throat: mucous membranes moist, no injection and skin normal, eyes normal Cardiovascular: normal S-1 and S-2 and regular rate and rhythm Respiratory: clear to auscultation (CTA) and no rales, rhonchi or wheeze Musculoskeletal: no peripheral edema and good distal pulses Skin: no stigmata of neurocutaneous disease noted and normal and intact Eyes: extraocular muscles intact (EOMI) and pupils equal, round and reactive to light (PERRL), gross peripheral vision intact NEUROLOGIC EXAMINATION: Mental status: Alert and interactive Oriented to 2019, hospital Oriented to person Speech some word finding issues, identifies pen, stethoscope, Cranial Nerves smile eye brow raise symmetric Reflexes: Deep tendon reflexes were symmetrical and graded 2/5. Sensory: no sensory deficits to light cool and vibration Coordination: finger to nose, heel to dewitt intact Gait/Stance: Posture normal, sitting bed side Motor: Negative for pronator drift of out stretched arms with eyes closed. Strength: hand automotive manufacturer biceps, triceps 5/5 bilaterally hip flex patellar/plantar flex ext 5/5 Results & Data Vital Signs (Past 12 Hours) Vital Signs Temp Pulse Resp BP BP Pulse Ox 01/17/19 11:34 36.6 C 89 24 120/69 97 01/17/19 07:54 36.7 C 80 24 121/76 96 Laboratory Results Abnormal lab results 01/16/19 01/16/19 01/16/19 Range/Units 15:40 16:55 16:55 RBC 3.38 L (4.2-5.4) M/uL Hgb 9.7 L (12.0-16.0) g/dL Hct 31.6 L (37-47) % MCHC 30.7 L (32-36) g/dL RDW Std Deviation 51.1 H (36.4-46.3) fL RDW Coeff of Db 15.0 H (11.5-14.5) % MPV 11.3 H (7.4-10.4) fL [place] # (Auto) 0.63 H (0.11-0.59) K/uL Chloride (98-107) mmol/L BUN 22 H (7-18) mg/dl BUN/Creatinine Ratio 29.2 H (10-20) POC Glucose 108 H (70-99) AST 13 L (15-37) U/L Albumin 3.1 L (3.4-5.0) gm/dl 01/17/19 01/17/19 Range/Units 05:23 05:23 RBC 3.18 L (4.2-5.4) M/uL Hgb 9.2 L (12.0-16.0) g/dL Hct 29.0 L (37-47) % MCHC 31.7 L (32-36) g/dL RDW Std Deviation 49.5 H (36.4-46.3) fL RDW Coeff of Db 14.8 H (11.5-14.5) % MPV (7.4-10.4) fL [place] # (Auto) 0.66 H (0.11-0.59) K/uL Chloride 109 H (98-107) mmol/L BUN (7-18) mg/dl BUN/Creatinine Ratio 27.4 H (10-20) POC Glucose (70-99) AST (15-37) U/L Albumin (3.4-5.0) gm/dl Diagnostic Findings TTE- EF 60-65%, No ASD CT head-Indeterminate findings require contrast-enhanced brain MRI. Limited cortical abnormality could represent an age-indeterminate infarct among other possibilities. Round hypodense focus in the left occipital lobe could be artifactual or represent an underlying lesion. No hemorrhage. CXR- No acute cardiopulmonary disease.
[2019-01-17] MEDS ORDERED: GADOBUTROL 65ML VIAL IV PRN (17:20)
--- NOTE | 2019-01-17 17:30 | Magnetic Resonance Report ---
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 TECHNIQUE: Multisequence, multiplanar MR imaging of the brain was performed before and after the admi nistration of intravenous contrast. IV contrast: 8 mL of Gadavist. COMPARISON: Noncontrast CT head performed yesterday. FINDINGS: Localizer images: Unremarkable. Bone marrow signal intensity within the calvarium within normal limits. Normal midline sagittal structures. Ventricles and sulci normal in size. No mass effect or midline sh ift. No restricted diffusion or hemorrhage. T-2/flair hyperintensity involving the posterior left tem poral region with mild enlargement of associated sulci most suggestive of a chronic infarct. No assoc iated abnormal enhancement. Few nonspecific foci of subcortical and periventricular white matter hype rattenuation. No abnormal parenchymal enhancement. No extra-axial fluid collection. T2 skull base flow voids preserved. IMPRESSION: 1. Chronic infarct suspected in the posterior left temporal region. 2. No abnormal enhancement or acute intracranial pathology. 3. Limited punctate scattered subcortical and periventricular white matter T2/FLAIR hyperintensity m ost likely early chronic small vessel ischemic change though this would be atypical given the patient 's younger age. Additional differential considerations include chronic migraines among other less lik amy etiologies. Electronically signed by: Reyes Hernandez M.D. 01/17/2019 5:28 PM
[2019-01-17] MEDS: ESCITALOPRAM OXALATE 10 MG TAB PO SCH (20:21)
[2019-01-17] MEDS: ARIPiprazole 15 MG TAB PO SCH (20:21)
--- NOTE | 2019-01-17 21:22 | Progress Note ---
DATE: 01/17/2019 HISTORY OF PRESENT ILLNESS: I discussed the patient's case with Ms. Sarah Conteh today, but the patient was not available at bedside. To review her history, she has a history of fibromyalgia, asthma, thoracic outlet syndrome, reflux, RSD, irritable bowel, head trauma, stroke in 2018 who was transferred from the [facility] due to confusion, sounds as if this was subacute. She was admitted to the [facility]. Multiple medications were changed. Apparently, her aspirin has been on hold due to anemia. When Sarah examined her, she found her to be awake and alert, tangential, potentially having visual hallucinations, but her exam appearing nonfocal. She did not appear to be delirious although I cannot comment on that myself. I think it is appropriate in this circumstance to obtain an MRI of the brain, EEG to rule out seizure, especially in light of her history of stroke. Records should attempt to be obtained from her hospitalization for stroke. Resumption of antiplatelet therapy when safe. We will reassess the patient tomorrow.
--- NOTE | 2019-01-17 22:15 | Hospitalist Progress Note ---
Date of Service January 17, 2019 Assessment & Plan (1) Confusion: (2) Altered mental status: 43-year-old female with a hx of depression,anxiety, possible paranoia who has been at [facility] since early November and who was brought in because of her brother who is a psychiatrist found the patient to be more confused, paranoid and delusional 1. Confusion, encephalopathy,history of depression and anxiety and paranoia - in [facility] since early November - Medications are adjusted but but as she was getting more confused and delusional, brother who is a psychiatrist advised to get further evaluation. CT scan showed questionable new lesions, hypodense lesion in the occipital lobe and recommended MRI scan - MRI ordered - We will continue current medications and we will consult psychiatry and neurology for further recommendations/evaluations - B1 levels wnl (as an outpatient) and her TSH wnl, ammonia level wnl - plan to obtain outside medical records and collateral information - 1 on observation Update: Neurology agrees w/ MRI and EEG, will cont. to follow 2. History of stroke - was on statin, lisinopril and aspirin in the past but aspirin was stopped because of anemia and statin was stopped because of questionable dementia, will discuss resuming meds w/neurologist 3. Hypothyroidism -continue Synthroid 4. Fibromyalgia and chronic pain -On pain meds 5. Anemia, etiology unclear - will continue iron supplements for now - s/p hysterectomy several years ago secondary to bleeding (as per brother) - will check Hemoccult 6. Depression - continue Lexapro 7. GERD - continue Protonix 8. Anxiety - continue Ativan 9. Migraines - on Topamax, (but trying to taper it as it can cause anemia as per brother.) DVT prophylaxis: SCDs for now Subjective Pt is lying in in bed, in no acute distress. Per nursing staff pt was agitated earlier today but after eating she was more calm. She is just about to get brain MRI. Pt denies any fever, chills, shortness of breath, chest pain, headache, change in vision, abd. pain, nausea or vomiting. She is pleasant overall but tangential in her answers, does not answer all questions appropriately. Review of Systems Constitutional: no fever and no chills Respiratory: no cough, no dyspnea and no pain on inspiration Cardiovascular: no chest pain, no radiating jaw, neck or arm pain, no dyspnea on exertion, no palpitations and no edema Gastrointestinal: no abdominal pain, no nausea and no vomiting Physical Exam Physical Exam: GENERAL: young female lying in bed in NAD, she is alert and awake, oriented to name and place only HEENT: NC/AT, EOMI, No pallor. No icterus. Pupils are sluggish to react to light. NECK: No JVD. No neck masses. No carotid bruits. Supple. CARDIOVASCULAR: S1, S2 heard. Soft murmur in aortic area is heard. LUNGS: Clear to auscultation bilaterally. No accessory muscle use. No wheezing. No crackles. ABDOMEN: Soft. Bowel sounds present. Obese, No distention. NEURO/ PSYCH: Alert and awake and oriented x2. Moves all extremities spont aneously. No facial asymmetry, speech fluent but tangential. Sensation is intact. Results & Data Vital Signs (Past 12 Hours) Vital Signs Temp Pulse Resp BP BP Pulse Ox 01/17/19 19:33 36.6 C 98 H 20 120/71 98 01/17/19 15:10 36.7 C 93 H 22 121/68 94 01/17/19 11:34 36.6 C 89 24 120/69 97 Laboratory Results 01/17/19 01/17/19 01/17/19 Range/Units 05:23 05:23 05:23 WBC 6.09 (4.8-10.8) K/uL RBC 3.18 L (4.2-5.4) M/uL Hgb 9.2 L (12.0-16.0) g/dL Hct 29.0 L (37-47) % MCV 91.2 (80-100) fL MCH 28.9 (25-34) pg MCHC 31.7 L (32-36) g/dL RDW Std Deviation 49.5 H (36.4-46.3) fL RDW Coeff of Db 14.8 H (11.5-14.5) % Plt Count 199 (130-400) K/uL MPV 9.9 (7.4-10.4) fL Immature Gran % (Auto) 0.2 % Neut % (Auto) 64.0 % Lymph % (Auto) 25.0 % [place] % (Auto) 10.8 % Eos % (Auto) 0.0 % Baso % (Auto) 0.0 % Immature Gran # (Auto) 0.01 (0.00-0.02) K/uL Neut # (Auto) 3.90 (1.4-6.5) K/uL Lymph # (Auto) 1.52 (1.2-3.4) K/uL [place] # (Auto) 0.66 H (0.11-0.59) K/uL Eos # (Auto) 0.00 (0-0.5) K/uL Baso # (Auto) 0.00 (0-0.2) K/uL Sodium 142 (136-145) mmol/L Potassium 3.6 (3.5-5.1) mmol/L Chloride 109 H (98-107) mmol/L Carbon Dioxide 26 (21-32) mmol/L Anion Gap 7.0 (3-11) BUN 18 (7-18) mg/dl Creatinine 0.66 (0.6-1.2) mg/dl Est Cr Clr Drug Dosing 108.0 ml/min Est GFR ( Amer) 123.6 Est GFR (Non-Af Amer) 106.7 BUN/Creatinine Ratio 27.4 H (10-20) Glucose 98 (70-99) mg/dl Calcium 8.8 (8.5-10.1) mg/dl Phosphorus 3.8 (2.5-4.9) mg/dl Magnesium 2.0 (1.8-2.4) mg/dl Medications Administered Current Inpatient Medications Acetaminophen (Tylenol) 650 mg PO Q4H PRN PRN Reason: Pain or Fever Stop: 02/15/19 21:34 Last Admin: 01/17/19 04:00 Dose: 650 mg Documented by: Hydrocodone Bitart/Acetaminophen ([place] 5/325) 1 tab PO Q6H MARIANN Stop: 01/30/19 21:59 Last Admin: 01/17/19 15:37 Dose: 1 tab Documented by: Albuterol (Ventolin Hfa) 2 puffs INH Q4H PRN PRN Reason: Shortness Of Breath Or Wheezing Stop: 02/15/19 21:34 Aripiprazole (Abilify) 15 mg PO HS MARIANN Stop: 02/15/19 21:34 Last Admin: 01/17/19 20:21 Dose: 15 mg Documented by: Benztropine Mesylate (Cogentin) 1 mg PO BID MARIANN Stop: 02/15/19 21:34 Last Admin: 01/17/19 20:21 Dose: 1 mg Documented by: Chlorpromazine HCl (Thorazine) 100 mg PO HS PRN PRN Reason: agitation Stop: 02/15/19 21:34 Diphenhydramine HCl (Benadryl Capsule) 50 mg PO HS PRN PRN Reason: agitation Stop: 02/15/19 21:34 Last Admin: 01/16/19 22:40 Dose: 50 mg Documented by: Escitalopram Oxalate (Lexapro Tab) 30 mg PO HS MARIANN Stop: 02/15/19 21:44 Last Admin: 01/17/19 20:21 Dose: 30 mg Documented by: Ferrous Sulfate (Feosol) 325 mg PO BID MARIANN Stop: 02/15/19 21:34 Last Admin: 01/17/19 20:21 Dose: 325 mg Documented by: Gadobutrol (Gadavist 65ml) 8 ml IV ONCE PRN PRN Reason: Interaction Checking Stop: 01/21/19 17:19 Last Admin: 01/17/19 17:21 Dose: 8 ml Documented by: Levothyroxine Sodium (Synthroid) 50 mcg PO DAILYBB MARIANN Stop: 02/16/19 06:29 Last Admin: 01/17/19 06:40 Dose: 50 mcg Documented by: Lorazepam (Ativan) 1 mg PO TID MARIANN Stop: 02/15/19 21:34 Last Admin: 01/17/19 20:21 Dose: 1 mg Documented by: Nitroglycerin (Nitrostat) 0.4 mg SL UD PRN PRN Reason: Chest Pain Stop: 02/15/19 21:34 Pantoprazole Sodium (Protonix) 40 mg PO DAILY MARIANN Stop: 02/16/19 08:59 Last Admin: 01/17/19 08:23 Dose: 40 mg Documented by: Polyethylene Glycol (Miralax Powder Packet) 17 gm PO DAILY PRN PRN Reason: Constipation Stop: 02/15/19 21:34 Last Admin: 01/17/19 06:45 Dose: 17 gm Documented by: Topiramate (Topamax) 100 mg PO DAILY MARIANN Stop: 02/16/19 08:59 Last Admin: 01/17/19 08:23 Dose: 100 mg Documented by:
[2019-01-18] MEDS: ACETAMINOPHEN 325 MG TAB PO PRN (01:07)
[2019-01-18] MEDS: HYDROCODONE/ACETAMOPHEN 5/325MG TAB PO SCH ×4 (04:56→21:14)
[2019-01-18 06:10] LABS: Hematocrit (blood only) 31.9 % (37-47); Hemoglobin 10.1 g/dL (12.0-16.0); Immature Granulocytes # (auto) 0.01 K/uL (0.00-0.02); Immature Granulocytes % (auto) 0.2 %; Lymphocytes # (auto) 1.43 K/uL (1.2-3.4); Lymphocytes % (auto) 23.7 %; Mean Corpuscular Hemoglobin 29.4 pg (25-34); Mean Corpuscular Hgb Conc 31.7 g/dL (32-36); Mean Corpuscular Volume 92.7 fL (80-100); Monocytes # (auto) 0.56 K/uL (0.11-0.59); Monocytes % (auto) 9.3 %; Neutrophils # (auto) 4.04 K/uL (1.4-6.5); Neutrophils % (auto) 66.8 %; Platelet Count 216 K/uL (130-400); RDW Coefficient of Variation 15.1 % (11.5-14.5); RDW Standard Deviation 51.1 fL (36.4-46.3); Red Blood Count 3.44 M/uL (4.2-5.4); White Blood Count 6.04 K/uL (4.8-10.8)
[2019-01-18] MEDS: LEVOTHYROXINE SODIUM 50 MCG TABLET PO SCH (06:22)
[2019-01-18 06:48] LABS: BUN Creatinine Ratio 24.2 (10-20); Calcium 9.4 mg/dl (8.5-10.1); Creatinine Clr Calc Pharmacy 113.1 ml/min; Est GFR (African American) 125.6; Est GFR (Non-African American) 108.3; Magnesium 2.1 mg/dl (1.8-2.4); Potassium 3.7 mmol/L (3.5-5.1)
[2019-01-18] MEDS: TOPIRAMATE 100 MG TAB PO SCH (09:10)
[2019-01-18] MEDS: PANTOprazole 40 MG TAB PO SCH (09:10)
[2019-01-18] MEDS: FERROUS SULFATE 325 MG TAB PO SCH ×2 (09:10→21:15)
[2019-01-18] MEDS: BENZTROPINE MESYLATE 1 MG TAB PO SCH ×2 (09:11→21:15)
[2019-01-18] MEDS: LORazepam 1 MG TAB PO SCH ×3 (09:13→21:13)
[2019-01-18] MEDS: POLYETHYLENE (MIRALAX) 17 GM PACK PO PRN (09:19)
[2019-01-18 12:52] LABS: Folate (Folic Acid) 8.55 ng/ml (>5.38)
--- NOTE | 2019-01-18 13:00 | Hospitalist Progress Note ---
Date of Service January 18, 2019 Assessment & Plan (1) Confusion: History of Depression and Anxiety History of Stroke in the past History of Migraine Headaches History of seizures -This is a patient from the [facility] under 304 with history of stroke in 2018 and because of progressive problems with behavioral health, patient was transferred for workup to rule out potentially reversible causes of confusion and behavioral health issues -Patient has been evaluated by inpatient psychiatry which is gathering patient's medical health records from the [facility] and noted that patient has failed trials of multiple anti-depressants and anti-psychotics -Patient also seen by neurology and brain MRI completed on 01/17/19 -Brain MRI shows chronic posterior left temporal infarct -Brain MRI also shows limited punctuate scattered subcortical and periventricular white matter which is described by radiologist as unusual for her age to have early chronic small vessel ischemic changes -patient's blood pressure appears to be normotensive -patient does appear to be on topiramate for migraines -echocardiogram is TTE but does not show evidence for cardiac emboli -patient's brother Mustapha affirms history of seizures of the patient, EEG performed and is read as normal -patint's family also pushing for rule out normal pressure hydrocephalus, patient agreed to lumbar puncture, hospitalist ordered request fro radiology to do lumbar puncture with opening pressure and broadly send panels including viral or multiple sclerosis panels -can consider restarting aspirin as stroke prevention after lumbar puncture performed -normal B12, normal folate levels -follow up RPR -will try to have patient off 1 to 1 observation, substitute close checks -appreciate further psychiatry recommendations on mood modifying medications Hypothyroidism -continue home dose Levothyroxine -TSH within euthyroid parameters Anemia -Hemoglobin stable as high 9s or 10 Fibromyalgia -pain control -PT/OT evaluations GERD -pantoprazole DVT prophylaxis: SCDs for now Contacts: Linsey (mother) [phone], Yannick (father), Mustapha (brother, physician) Subjective Hospitalist met patient for first time. She is cooperative on exam. Patient's nurse reports that patient has been able to ambulate initially with unsteady gait. Patient corroborates that walks to bathroom with assistance. She defers ambulatory exam when asked by hospitalist to see her gait. She also claims she accidentally dialed 911 on the phone. Discussed with patient and her family members on the phone including Linsey (Mother [phone]) and Mustapha (Brother, physician) and in agreement about pursuing lumbar puncture. Patient agrees and she signs consent form. denies headache today. denies shortness of breath. denies abdominal pain. denies chest pain. denies vomiting. denies problems with eating Review of Systems Review of Systems: All systems reviewed & are unremarkable except as noted in HPI & below Physical Exam Eyes: PERRL, conjunctivae normal, anicteric sclerae EOM intact bilaterally ENMT: external ear and nose normal, oropharynx normal Neck: normal visual inspection Respiratory: normal respiratory effort, lungs clear to auscultation Cardiovascular: Rate/Rhythm: regular rate and regular rhythm Gastrointestinal (Abdomen): normal bowel sounds, soft, nontender, no hepatosplenomegaly Musculoskeletal: patient uses left arm to raise the right arm to sign the lumbar puncture consent form Neurologic: moves all extremities Psychiatric: Orientation: alert Results & Data Vital Signs (Past 12 Hours) Vital Signs Temp Pulse Resp BP Pulse Ox 01/18/19 11:03 36.8 C 111 H 18 133/73 94 01/18/19 09:28 36.6 C 101 H 18 139/85 94
--- NOTE | 2019-01-18 13:16 | Electroencephalogram ---
EEG Procedure Note Date of Service January 18, 2019 Start / End Times Start Time: 621 End Time: 641 Referring Physician Sarah Granger MD History Possible seizures Home Medication List Home Medications Medication Instructions Recorded Confirmed Type Cogentin 1 mg PO BID 01/16/19 01/16/19 History aripiprazole [Abilify] 15 mg PO HS 01/16/19 01/16/19 History chlorpromazine 100 mg PO DIRECTED PRN 01/16/19 01/16/19 History diphenhydramine HCl [Benadryl] 50 mg PO DIRECTED PRN 01/16/19 01/16/19 History escitalopram oxalate 30 mg PO HS 01/16/19 01/16/19 History ferrous sulfate 325 mg PO BID 01/16/19 01/16/19 History hydrocodone-acetaminophen [[place]] 1 tab PO Q6H 01/16/19 01/16/19 History levothyroxine [Synthroid] 50 mcg PO DAILY 01/16/19 01/16/19 History lorazepam 1 mg PO TID 01/16/19 01/16/19 History pantoprazole [Protonix] 40 mg PO DAILY 01/16/19 01/16/19 History topiramate 100 mg PO DAILY 01/16/19 01/16/19 History Inpatient Medication List Hydrocodone Bitart/Acetaminophen ([place] 5/325) 1 tab PO Q6H MARIANN Stop: 01/30/19 21:59 Last Admin: 01/18/19 09:13 Dose: 1 tab Documented by: [id number] Admin: 01/18/19 04:56 Dose: Not Given Documented by: [id number] Admin: 01/17/19 22:51 Dose: 1 tab Documented by: [id number] Admin: 01/17/19 15:37 Dose: 1 tab Documented by: [id number] Admin: 01/17/19 11:23 Dose: 1 tab Documented by: [id number] Admin: 01/17/19 04:00 Dose: 1 tab Documented by: [id number] Admin: 01/16/19 22:24 Dose: 1 tab Documented by: [id number] Aripiprazole (Abilify) 15 mg PO HS MARIANN Stop: 02/15/19 21:34 Last Admin: 01/17/19 20:21 Dose: 15 mg Documented by: [id number] Admin: 01/16/19 22:24 Dose: 15 mg Documented by: [id number] Benztropine Mesylate (Cogentin) 1 mg PO BID MARIANN Stop: 02/15/19 21:34 Last Admin: 01/18/19 09:11 Dose: 1 mg Documented by: [id number] Admin: 01/17/19 20:21 Dose: 1 mg Documented by: [id number] Admin: 01/17/19 08:10 Dose: Not Given Documented by: [id number] Admin: 01/16/19 22:24 Dose: 1 mg Documented by: [id number] Diphenhydramine HCl (Benadryl Capsule) 50 mg PO HS PRN PRN Reason: agitation Stop: 02/15/19 21:34 Last Admin: 01/16/19 22:40 Dose: 50 mg Documented by: [id number] Escitalopram Oxalate (Lexapro Tab) 30 mg PO HS MARIANN Stop: 02/15/19 21:44 Last Admin: 01/17/19 20:21 Dose: 30 mg Documented by: [id number] Admin: 01/16/19 22:23 Dose: 30 mg Documented by: [id number] Ferrous Sulfate (Feosol) 325 mg PO BID MARIANN Stop: 02/15/19 21:34 Last Admin: 01/18/19 09:10 Dose: 325 mg Documented by: [id number] Admin: 01/17/19 20:21 Dose: 325 mg Documented by: [id number] Admin: 01/17/19 08:22 Dose: 325 mg Documented by: [id number] Admin: 01/16/19 22:25 Dose: 325 mg Documented by: [id number] Levothyroxine Sodium (Synthroid) 50 mcg PO DAILYBB MARIANN Stop: 02/16/19 06:29 Last Admin: 01/18/19 06:22 Dose: Not Given Documented by: [id number] Admin: 01/17/19 06:40 Dose: 50 mcg Documented by: [id number] Lorazepam (Ativan) 1 mg PO TID MARIANN Stop: 02/15/19 21:34 Last Admin: 01/18/19 09:13 Dose: 1 mg Documented by: [id number] Admin: 01/17/19 20:21 Dose: 1 mg Documented by: [id number] Admin: 01/17/19 13:14 Dose: 1 mg Documented by: [id number] Admin: 01/17/19 08:22 Dose: 1 mg Documented by: [id number] Admin: 01/16/19 22:42 Dose: 1 mg Documented by: [id number] Pantoprazole Sodium (Protonix) 40 mg PO DAILY MARIANN Stop: 02/16/19 08:59 Last Admin: 01/18/19 09:10 Dose: 40 mg Documented by: [id number] Admin: 01/17/19 08:23 Dose: 40 mg Documented by: [id number] Polyethylene Glycol (Miralax Powder Packet) 17 gm PO DAILY PRN PRN Reason: Constipation Stop: 02/15/19 21:34 Last Admin: 01/18/19 09:19 Dose: 17 gm Documented by: [id number] Admin: 01/17/19 06:45 Dose: 17 gm Documented by: [id number] Topiramate (Topamax) 100 mg PO DAILY [facility] Stop: 02/16/19 08:59 Last Admin: 01/18/19 09:10 Dose: 100 mg Documented by: [id number] Admin: 01/17/19 08:23 Dose: 100 mg Documented by: [id number] Discontinued Medications Acetaminophen (Tylenol) 650 mg PO Q4H PRN PRN Reason: Pain or Fever Stop: 02/15/19 21:34 Last Admin: 01/18/19 01:07 Dose: 650 mg Documented by: [id number] Admin: 01/17/19 04:00 Dose: 650 mg Documented by: [id number] Admin: 01/16/19 22:40 Dose: 650 mg Documented by: [id number] Gadobutrol (Gadavist 65ml) 8 ml IV ONCE PRN PRN Reason: Interaction Checking Stop: 01/21/19 17:19 Last Admin: 01/17/19 17:21 Dose: 8 ml Documented by: [id number] Influenza Virus Vaccine Quadrival (Flucelvax Quad Vaccine) 0.5 ml IM .ONCE ONE Stop: 01/17/19 01:01 Last Admin: 01/17/19 15:37 Dose: 0.5 ml Documented by: [id number] Description This EEG was done as a bedside and unfortunately is hampered by the presence of muscle movement artifacts sufficienDuring these intervals there is evidence for a well-developed background rhythm in the alpha range of up to 9 Hz maximum frequency and 20 V maximum amplitude. This is maximum posterior head regions and is symmetrical. Theta activity seen centrally. Beta activity seen bifrontally. Photic stimulation provokes minimal driving response At no time is there evidence for unequivocal potentially epileptogenic activity amounts of interpretable recording however are available for analysis. Interpretation This is a technically limited but otherwise normal EEG during wakefulness Clinical Correlation Essentially normal EEG allowing for muscle no evidence for focal or generalized changes or for potentially epileptogenic activity Jose Johnson MD
--- NOTE | 2019-01-18 15:01 | Fluoroscopy Report ---
FL lumbar puncture diagnostic CLINICAL HISTORY: 43 years-old Female presenting with lumbar puncture, opening pressure, lab specimen s. COMPARISON: None. PROCEDURE: The procedure, risks and benefits were discussed with the patient including the risk of spinal headac he, bleeding and infection. The patient agreed to the procedure and informed written consent was obta ined. The procedure was performed by Dr. Hernandez following a timeout. The L3-4 interspinous space was targeted. Skin overlying the space was prepped and draped in the usua l aseptic fashion and local anesthesia was achieved with 1% lidocaine. Under intermittent fluoroscopi c guidance, a 20-gauge x 3 1/2 in. Sprotte needle was inserted into the thecal sac. Opening pressure was obtained in prone positioning, which measured 14 cmH2O. A total of 8 mL of clear , colorless cerebral spinal fluid was obtained and spread amongst 4 vials. The patient tolerated the procedure well. There were no immediate complications. The specimens were s ent to the laboratory at the request of the referring physician. Reference range: Normal opening pressure 6-25 cmH2O (95% reference interval for lateral decubitus positioning). Fluoroscopy dosage (mGy): Not available. Fluoroscopy time: 0.2 minutes. Number or time of high level fluoroscopy (HLF), digital spot, or digital subtraction images: 0. IMPRESSION: 1. Successful fluoroscopic guided lumbar puncture with removal of 8 mL of clear, colorless cerebral spinal fluid. No immediate complications. 2. Normal opening pressure. Electronically signed by: Reyes Hernandez M.D. 01/18/2019 3:00 PM
--- NOTE | 2019-01-18 15:08 | Neurology Progress Note ---
Date of Service January 18, 2019 Assessment & Plan (1) Altered mental status: 1. MRI brain with and without - no acute findings 2. psychiatry for evaluation of medications - will stay on current medications for now 3. PT/OT speech for any discharge needs 4. aid for patient safety 5. not sure what her baseline is but she is very tangential with conversion. She seems to mimics stroke patients and walking she mimics also 6. if no contra indications to aspirin 81 mg -plt 199- would restart 7. LP done today to r/o infections and NPH however to r/o NPH you need a protocol with high volume tap and PT involved with evaluation prior to the tap and after the tap 8. she is from the [facility] if NPH is still suspected [facility] may have a program to evaluate. Supervising Physician Co-Signing Physician Notes I have seen and discussed above patient with Dr Sarah Granger, neurology Subjective Jess is a 43 year old female with PMH of fibromyalgia, asthma, thoracic outlet syndrome, reflux sympathetic dystrophy, irritable bowel syndrome, anemia, history of head trauma as a child, CVA in 2017, was transferred here from the [facility] because of confusion. She drives the car and was doing fine until 6 months ago when she developed some paranoia and some confusion. She had an evaluation by neurology and psychiatry and was admitted to the [facility] in early weeks of November. She was getting more confused and some of her medications were decreased but she didn't improve. She was delusional and had a shuffling gait. She was on aspirin since the previous stroke but that was stopped due to some anemia and Lipitor due to some dementia symptoms. She is currently lying in bed and asking about the LP. She is hard to keep on subject and continues to hesitate to answer questions. It appear she is mimicking stroke symptoms she has seen on other people. denies CP, SOB, abdominal pain, one sided weakness, numbness tingling, N, V, swallowing issues, vision changes. She states she hurts all over because of her fibromyalgia. Physical Exam Physical Exam: Gen: alert NAD lungs CTA CV RRR hand ship wirer biceps triceps 5/5 bilaterally, hip flex 5/5 bilaterally difficult to examine she does not want to move off her side. Results & Data Vital Signs (Past 12 Hours) Vital Signs Temp Pulse Resp BP Pulse Ox 11/13/19 14:20 95 01/18/19 11:03 36.8 C 111 H 18 133/73 94 01/18/19 09:28 36.6 C 101 H 18 139/85 94 Laboratory Results Abnormal lab results 01/18/19 01/18/19 Range/Units 05:56 05:56 RBC 3.44 L (4.2-5.4) M/uL Hgb 10.1 L (12.0-16.0) g/dL Hct 31.9 L (37-47) % MCHC 31.7 L (32-36) g/dL RDW Std Deviation 51.1 H (36.4-46.3) fL RDW Coeff of Db 15.1 H (11.5-14.5) % MPV 11.0 H (7.4-10.4) fL Chloride 111 H (98-107) mmol/L BUN/Creatinine Ratio 24.2 H (10-20) Glucose 113 H (70-99) mg/dl Diagnostic Findings MRI brain-Chronic infarct suspected in the posterior left temporal region. No abnormal enhancement or acute intracranial pathology. Limited punctate scattered subcortical and periventricular white matter T2/FLAIR hyperintensity most likely early chronic small vessel ischemic change though this would be atypical given the patient's younger age. Additional differential considerations include chronic migraines among other less likely etiologies. LP-Successful fluoroscopic guided lumbar puncture with removal of 8 mL of clear, colorless cerebral spinal fluid. No immediate complications. Normal opening pressure.
[2019-01-18 15:24] LABS: Total Protein CSF 31.6 mg/dl (15-45)
[2019-01-18 15:32] LABS: Appearance CSF Clear; CSF Count Tube # 3; CSF Xanthrochromic No xanthochromia; Color CSF Colorless; Red Blood Cell CSF (A) 0 /uL (0-); Red Blood Cell CSF (B) 0 /uL (0-); White Blood Cell CSF (A) 6 /uL (0-5); White Blood Cell CSF (B) 8 /uL (0-5)
--- NOTE | 2019-01-18 19:02 | Progress Note ---
DATE: 01/18/2019 I am seeing Jess for the first time today. Sarah Wero saw her yesterday. I discussed her case with Sarah as well as Dr. Enriquez. The patient by report has a psychiatric history which dates back to college, but that diagnosis apparently was anxiety or depression. Per some secondhand conversation, recently the anxiety and depression escalated such that she became psychotic or at least apparently became psychotic in October and November. She presented to [facility] in November with 302 from the [facility] where they became concerned of change in mental status. The patient indicates that about a year or 2 ago, she had a stroke causing aphasia. She is not aware of the etiology. Currently, her aspirin and her statin have been on hold. She has no history that I am aware of hypertension or diabetes. She is not a cigarette smoker. She denies a history of pulmonary embolism. The patient indicates a longstanding history of migraine headaches for which Imitrex is helpful. She also indicates that she has had bilateral thoracic outlet surgery, bilateral ulnar nerve surgery. She has had a right knee surgery and has fibromyalgia. Her MRI of the brain, which I reviewed, shows a left temporal infarction. Mild nonspecific changes in the white matter, which could be consistent with her history of migraines. EEG was normal. Labs were notable for mild anemia, blood sugar on admission 108, BUN/creatinine 22/0.75. Transaminases normal. Albumin 3.1. TSH 1.1. Urinalysis negative. PHYSICAL EXAMINATION: The patient is awake and alert. Blood pressure 133/73, pulse is 111, respirations 18, temperature 36.8. The patient is oriented to person. She knows she is in a hospital, but does not know the name. She is oriented to year, but not month, thinking that it is December. She has no right/left confusion. No aphasia is noted. Repetitions are normal and 3-step commands are normal. Her memory is 3/3 when I gave her a second chance. Seems to be aware of current events. 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 She does not know what she takes for that. Mental status: She is tangential easily and quickly becoming tearful. She appears mildly paranoid as she declined to turn the sound off on the TV, so that other people did not hear. She denies any hallucinations, olfactory or otherwise. Her level of consciousness was normal without fluctuation. Her neck was supple. There is normal extraocular motility, visual josue. There is a slight flattening of the right nasolabial fold. Speech as above. Motor: Bilateral upper extremities are symmetric. There is a mild decrease in right rapid alternating movements. Bilateral lower extremities show some hyperpigmentation. The patient indicates she is very sensitive in the legs and was not entirely cooperative with strength testing or reflexes in the lower. I did not see any obvious reflex asymmetry. The toes were downgoing. I did not appreciate any clonus. [id number] was normal. [id number], the patient would not cooperate. I saw no resting tremor or cogwheel rigidity. There is no bradykinesia. There was no head, voice or jaw tremor. No myoclonic jerks were noted and no choreiform movements were noted. Gait was not tested as the patient did not want to get up because of recent lumbar puncture. IMPRESSION AND PLAN: This patient has psychosis, the duration of which is unknown to me. She does not currently appear delirious. I think if the psychosis is new, we should be vigilant about looking for organic causes. Lumbar puncture has been performed and there are 6 white cells, which I think is unremarkable and normal total protein, and cultures are pending. Family has some concerns that she may have normal pressure hydrocephalus. She does not have hydrocephalus on exam. I will walk her tomorrow and see if her gait is consistent with the same. Again, she does not radiographically have hydrocephalus. Her EEG does not show any episodes of intermittent seizures; however, if her mentation were to fluctuate, it may be reasonable to do an ambulatory EEG. Check a thiamine level as well as B12, folate. Minimize any sedative hypnotics. Fortunately, I do not see any drug-induced parkinsonism or akathisia. I would likely keep Topamax on board given her history of seizure. Regarding her partial left middle cerebral artery infarction, I would resume aspirin and a statin, and Dr. Enriquez is going to make an attempt to get her hospital records from [facility] regarding her stroke evaluation.
[2019-01-18] MEDS: ARIPiprazole 15 MG TAB PO SCH (21:14)
[2019-01-18] MEDS: ESCITALOPRAM OXALATE 10 MG TAB PO SCH (21:15)
[2019-01-18] MEDS: CHLORPROMAZINE HCL 100 MG TABLET PO PRN (23:41)
[2019-01-19] MEDS: HYDROCODONE/ACETAMOPHEN 5/325MG TAB PO SCH ×4 (03:36→21:13)
[2019-01-19] MEDS: LEVOTHYROXINE SODIUM 50 MCG TABLET PO SCH (06:40)
[2019-01-19 07:27] LABS: Hematocrit (blood only) 30.3 % (37-47); Hemoglobin 9.6 g/dL (12.0-16.0); Immature Granulocytes # (auto) 0.01 K/uL (0.00-0.02); Immature Granulocytes % (auto) 0.2 %; Lymphocytes # (auto) 1.78 K/uL (1.2-3.4); Mean Corpuscular Hemoglobin 29.1 pg (25-34); Mean Corpuscular Hgb Conc 31.7 g/dL (32-36); Mean Corpuscular Volume 91.8 fL (80-100); Mean Platelet Volume 10.6 fL (7.4-10.4); Monocytes # (auto) 0.58 K/uL (0.11-0.59); Monocytes % (auto) 10.4 %; Neutrophils # (auto) 3.19 K/uL (1.4-6.5); Neutrophils % (auto) 57.4 %; Platelet Count 160 K/uL (130-400); RDW Coefficient of Variation 14.9 % (11.5-14.5); RDW Standard Deviation 50.2 fL (36.4-46.3); White Blood Count 5.56 K/uL (4.8-10.8)
[2019-01-19] MEDS: FERROUS SULFATE 325 MG TAB PO SCH ×2 (10:25→21:15)
[2019-01-19] MEDS: BENZTROPINE MESYLATE 1 MG TAB PO SCH ×2 (10:25→21:15)
[2019-01-19] MEDS: LORazepam 1 MG TAB PO SCH ×3 (10:25→21:13)
[2019-01-19] MEDS: PANTOprazole 40 MG TAB PO SCH (10:25)
[2019-01-19] MEDS: TOPIRAMATE 100 MG TAB PO SCH (10:26)
[2019-01-19] MEDS: ASPIRIN 81 MG CHEW PO SCH (10:26)
[2019-01-19] MEDS: ACETAMINOPHEN 325 MG TAB PO PRN (13:31)
--- NOTE | 2019-01-19 14:54 | Neurology Progress Note ---
Date of Service January 19, 2019 Assessment & Plan (1) Altered mental status: 1. MRI brain with and without - no acute findings 2. psychiatry for evaluation of medications - will stay on current medications for now 3. PT/OT speech for any discharge needs 4. aid for patient safety 5. not sure what her baseline is but she is very tangential with conversion. She seems to mimics stroke patients and walking she mimics also 6. if no contra indications to aspirin 81 mg -plt 199- would restart 7. LP done today to r/o infections and NPH however to r/o NPH you need a protocol with high volume tap and PT involved with evaluation prior to the tap and after the tap 8. she is from the [facility] if NPH is still suspected [facility] may have a program to evaluate however there is no evidence she has hydrocephalus and a high volume tap may actually cause harm. 9. there is no neurologic issues at this point seen. She has no evidence radiographically or clinically for NPH. She does have a history of Jacksonian seizure and this should be considered in her care. 10. if she has any sudden neurologic decline she should be seen by neurology either here or if she is back in [facility]. Supervising Physician Co-Signing Physician Notes I have seen and discussed above patient with Dr Sarah Granger, neurology Pt seen and examined. She is awake and alert mildly tangential. The patient is perseverative. Less emotional than yesterday. There is no resting tremor. No bradykinesia. No cogwheel rigidity. No facial masking is noted. The patient's gait with a walker is unremarkable. While it may be mildly slow is not narrow based nor overtly bradykinetic. Her turns are adequate. There is nothing to suggest a gait apraxia ataxia or a parkinsonian gait. Impression this patient has a history of a left MCA infarction. We have some of her medical records and they include the report of an Echo vascular imaging. By report a hypercoagulable state workup was sent the results of which were not in the chart. If the patient is established with the Neurology at her home she should return in follow-up post discharge. The patient gives a history of Jacksonian seizures. Whether this is correct is unclear to me. Currently she is taking topiramate and if that was no longer being used for migraine prophylaxis her treating physician would need to consider carefully as to whether not she would need ongoing anticonvulsants. Patient's EEG did not show a seizure focus although this does not exclude epilepsy I do not know when her last seizure was. This patient does not have normal pressure hydrocephalus. There is no evidence of a meningeal process although cultures are still pending. The patient's baseline mental status is unclear to me she does not appear delirious. I think her mentation should be monitored and certainly if there is a decline further evaluation for other etiologies of cognitive dysfunction should be undertaken. Will sign off at present. BRANDEE Granger MD Donya Mercado is a 43 year old female with PMH of fibromyalgia, asthma, thoracic outlet syndrome, reflux sympathetic dystrophy, irritable bowel syndrome, anemia, history of head trauma as a child, CVA in 2018, was transferred here from the [facility] because of confusion. She drives the car and was doing fine until 6 months ago when she developed some paranoia and some confusion. She had an evaluation by neurology and psychiatry and was admitted to the [facility] in early weeks of November. She was getting more confused and some of her medications were decreased but she didn't improve. She was delusional and had a shuffling gait. She was on aspirin since the previous stroke but that was stopped due to some anemia and Lipitor due to some dementia symptoms. She gave permission for us to call her mom for information. Mom states she has had a 20 year history of anxiety and depression. She has been on chronic pain medications since age 13. she had a ulnar nerve bilaterally transposition, she has thoracic outlet syndrome, RSD, fibromyalgia. She was driving prior to the 302 admission to the [facility] and volunteering at the [employer]. 1 year ago she had a left temporal stroke and since then she has had some slurred speech, and right sided weakness. She also has chronic headaches, dyslexic, and when her pain gets worse all of her symptoms get worse. She thinks the [facility] stopped her thyroid medication sbut I assured her it was no her medication list. At the end of October she was admitted to [facility] because she thought her head was "exploding". there was not stroke seen during that admission. in November she had another admission and had a breakdown leading to the 302 to the [facility]. They tested her for Lyme which confirmatory was negative.Mom questions the LP and advised that it was done but no high volume tap was done and and her MRI showed no hydrocephalus and it would not be advised to do a high volume tap on her it could cause tonsil herniation. She is hard to keep on subject and continues to hesitate to answer questions. It appear she is mimicking stroke symptoms she has seen on other people. denies CP, SOB, abdominal pain, one sided weakness, numbness tingling, N, V, swallowing issues, vision changes. She states she hurts all over because of her fibromyalgia. Physical Exam Physical Exam: Gen: alert NAD, stays on task but then goes off on other issues knows she is in a hospital, January normal respiratory effort stands with arms or chair uses walker to ambulate ambulates with 2 person assist no shuffling gait no Romberg with eyes closed Results & Data Vital Signs (Past 12 Hours) Vital Signs Temp Pulse Pulse Resp BP Pulse Ox 01/19/19 08:00 91 H 01/19/19 07:07 36.7 C 96 H 20 127/78 96 01/19/19 03:09 36.5 C 82 17 144/83 H 97 Laboratory Results Abnormal lab results 01/18/19 01/18/19 01/19/19 Range/Units 16:45 20:12 07:05 RBC 3.30 L (4.2-5.4) M/uL Hgb 9.6 L (12.0-16.0) g/dL Hct 30.3 L (37-47) % MCHC 31.7 L (32-36) g/dL RDW Std Deviation 50.2 H (36.4-46.3) fL RDW Coeff of Db 14.9 H (11.5-14.5) % MPV 10.6 H (7.4-10.4) fL POC Glucose 109 H 118 H (70-99) Diagnostic Findings no new imaging
--- NOTE | 2019-01-19 15:17 | Hospitalist Progress Note ---
Date of Service January 19, 2019 Assessment & Plan (1) Confusion: History of Depression and Anxiety History of Stroke in the past History of Migraine Headaches History of seizures -Medical records from [facility] of stroke evaluation in August 2016 have been reviewed -This is a patient from the [facility] under 304 with history of stroke in 2018 and because of progressive problems with behavioral health, patient was transferred for workup to rule out potentially reversible causes of confusion and behavioral health issues -Patient has been evaluated by inpatient psychiatry which is gathering patient's medical health records from the [facility] and noted that patient has failed trials of multiple anti-depressants and anti-psychotics -Patient also seen by neurology and brain MRI completed on 01/17/19 -Brain MRI shows chronic posterior left temporal infarct -Brain MRI also shows limited punctuate scattered subcortical and periventricular white matter which is described by radiologist as unusual for her age to have early chronic small vessel ischemic changes -patient's blood pressure appears to be normotensive -patient does appear to be on topiramate for migraines -echocardiogram is TTE but does not show evidence for cardiac emboli -patient's brother Mustapha affirms history of seizures of the patient, EEG performed and is read as normal -Lumbar puncture on 01/18/19 with normal opening pressure. Review of CSF WBC and CSF protein does not suggest meningitis. However, multiple reference labs from CSF are pending including viral or multiple sclerosis panels -aspirin restarted after lumbar puncture -normal B12, normal folate levels. serum RPR is nonreactive -serum Vitamin B1 (thiamine) levels pending -patient to date has not exhibited any acute psychosis. But sometimes she is tangential and her affect may not be deemed to be "normal". Yet she has been able to communicate her health history to some good degree of accuracy when corroborating with family members by phone. patient does have some fixation with healed sore of the right lower leg. she has been encouraged to ambulate -currently patient on escitalopram 30 mg qhs, aripiprazole 15 mg qhs, lorazepam 1 mg TID, benzotropine 1 mg BID, Diphenhydramine 30 mg qhs prn if agitation, ch lorpromazine 100 mg qhs prn if agitation -as per nursing staff patient remains 1 to 1 observation because of [address] and from the [facility] -appreciate further psychiatry recommendations on mood modifying medications -have discussed with patient's family members that at this time, most likely will wait for return of finalized CSF results and that if no revealing organic causes of behaviors then patient will likely need to be discharged to [facility] under the 304 to finish the psychiatric workup and treatment Hypothyroidism -continue home dose Levothyroxine -TSH within euthyroid parameters Anemia -Hemoglobin stable as high 9s or 10 Fibromyalgia -pain control -PT/OT evaluations GERD -pantoprazole Patient wears medical wrist band including thoracic outlet syndrome DVT prophylaxis: SCDs for now, encourage ambulation Contacts: Linsey (mother) [phone], Yannick (father), Mustapha (brother, physician) [phone] Subjective -patient to date has not exhibited any acute psychosis. But sometimes she is tangential and her affect may not be deemed to be "normal". Yet she has been able to communicate her health history to some good degree of accuracy when corroborating with family members by phone. patient does have some fixation with healed sore of the right lower leg. she has been encouraged to ambulate no chest pain. no abdominal pain. no shortness of breath Review of Systems Review of Systems: All systems reviewed & are unremarkable except as noted in HPI & below Physical Exam Eyes: PERRL, conjunctivae normal, anicteric sclerae EOM intact bilaterally ENMT: external ear and nose normal, oropharynx normal Neck: normal visual inspection Respiratory: normal respiratory effort, lungs clear to auscultation Cardiovascular: Rate/Rhythm: regular rate and regular rhythm Gastrointestinal (Abdomen): normal bowel sounds, soft, nontender, no hepatosplenomegaly Musculoskeletal: Head/Neck/Chest: normocephalic and head atraumatic Neurologic: moves all extremities Psychiatric: Orientation: alert Thought Process: + tangential thought process Results & Data Vital Signs (Past 12 Hours) Vital Signs Temp Pulse Pulse Resp BP Pulse Ox 01/19/19 08:00 91 H 01/19/19 07:07 36.7 C 96 H 20 127/78 96
[2019-01-19] MEDS: CHLORPROMAZINE HCL 100 MG TABLET PO PRN (21:13)
[2019-01-19] MEDS: ESCITALOPRAM OXALATE 10 MG TAB PO SCH (21:14)
[2019-01-19] MEDS: ARIPiprazole 15 MG TAB PO SCH (21:15)
[2019-01-20] MEDS: HYDROCODONE/ACETAMOPHEN 5/325MG TAB PO SCH ×4 (04:49→21:33)
[2019-01-20] MEDS: LEVOTHYROXINE SODIUM 50 MCG TABLET PO SCH (05:50)
[2019-01-20] MEDS: ACETAMINOPHEN 325 MG TAB PO PRN ×2 (06:21→12:26)
[2019-01-20] MEDS: PANTOprazole 40 MG TAB PO SCH (07:46)
[2019-01-20] MEDS: LORazepam 1 MG TAB PO SCH ×3 (07:46→21:33)
[2019-01-20] MEDS: TOPIRAMATE 100 MG TAB PO SCH (07:46)
[2019-01-20] MEDS: FERROUS SULFATE 325 MG TAB PO SCH ×2 (07:47→21:35)
[2019-01-20] MEDS: ASPIRIN 81 MG CHEW PO SCH (07:47)
[2019-01-20] MEDS: BENZTROPINE MESYLATE 1 MG TAB PO SCH ×2 (07:48→21:35)
--- NOTE | 2019-01-20 10:50 | Psychiatric Progress Note ---
Date of Service January 20, 2019 Impression / Recommendations Impression 01/17/19 - 43-year-old female admitted medically on 01/16/2019 after presenting to the ED from the [facility]. It was reported that the patient has been hospitalized at the [facility] for over a month, and family grew concerned about patient "acting unusual." Psychiatric consultation is requested to evaluate patient for altered mental status, given recent history of psychiatric treatment. Patient is a rather poor historian, preoccupied with concerns that this provider is not able to predict her favorite animal and that this provider did not "pass the test." Patient is highly labile and tangential. Psychiatric nurse liaison was able to speak with staff from the [facility] regarding her history of treatment. It is reported that the patient had presented to their facility with confusion and paranoia. They report that she was already "altered" when she presented to their facility, and had no response to various medication trials. Patient had been tried on haloperidol, bupropion, quet iapine, and venlafaxine -all with little benefit. It was reported the patient was given a "medication holiday" after multiple failed medication trials. It is reported that her condition improved slightly with only as needed use of chlorpromazine. This improvement was not sustained, and she further decompensated, leading to initiation of aripiprazole on 01/08/2019. Concerns for a more significant issue were increased when patient had frequent episodes of incontinence of bowel and bladder, was increasingly confused, and demonstrated changes in her ambulatory function and gait. Pt is on several psychiatric medications that are centrally acting and could reasonably lead to confusion. The concern at this time, is that we do not have a clear timeline of when the change in her mental status began, as it seems to predate her admission to the [facility]. We will attempt to gather additional information from outpatient supports in order to better determine potential causes for her altered mental status. Agree with neurology consultation for recommendations as well. Patient is a poor historian; however, there are reports of olfactory and visual hallucinations which generally predict a more organic etiology for mental status change. At this time, we would recommend continuing her current medication regimen as initiated at [place]. We will continue attempts to gather collateral information, and provide additional recommendations as they are available. Ultimately, discharge plan would be for patient to return back to the [facility] after she is medically cleared, in order to obtain her belongings and be formally discharged from their facility. We appreciate the opportunity to participate in the care of this patient. Please reach out to our service with any additional questions. 01/20 - Pt's condition seems to be improving overall, though she continues to be mildly tangential and insight continues to be limited. Information at this time suggests patient is on an active 304 inpatient commitment to the [facility], and unless medically findings suggest need for alternative treatment facility, it should be transferred back to the [facility] at discharge to continue psychiatric treatment and discharge procedures per her treatment team at that facility - No medication adjustments are recommended at this time, as patient had been undergoing psychiatric treatment at the [facility]. Condition seems to be improving slowly, and would suggest medication adjustments be deferred to the facility she has been treated at for the past 2 months, to avoid destabilization of the progress that had been made there - From a risk-assessment standpoint, patient seems to be psychiatrically stable for discharge back to the [facility] after she is medically cleared by the primary team Interval History Identifying Information 43-year-old female admitted medically on 01/16/2019 after presenting to the ED upon transfer [facility]. It was reported that family had noticed unusual changes in the patient, and were concerned about other medical concerns leading to her confusion and altered state. Psychiatric consultation was requested to evaluate the patient for altered mental status, in light of ongoing inpatient psychiatric treatment. Chief Complaint "Yes, I remember talking with you. We talked about my mom, and my brother, and the hippo." Review of Systems Notes Constitutional: reports "my who body aches", admits to feeling "uncomfortable" Cardiovascular: denied Respiratory: denied Gastrointestinal: denied Neurological: denied Psychiatric: denies symptoms other than stated above Integumentary: reporting a "sore" to her right anterior lower extremity Total of at least 10 systems reviewed, pertinent positives as above and in HPI. Subjective Subjective Patient was seen & assessed and interval progress reviewed with supervising psychiatrist and psychiatric nurse liaison. Updated on referral process, as patient will ideally be placed in a long-term facility on discharge. Pt was seen today, along with psychiatric nurse liaison, to assess progress since admission. Pt states she is improving, and surprisingly remembers her previous conversation with this provider. Pt states that she is not doing well, as "my whole body aches." She shares with us that prior to her hospitalization at the [facility], she was living with her mother and father in [place]. Pt reports playing a large role in caring for her father, whom she states has dementia. Pt is able to answer most questions related to orientation, with near accuracy. She believes today is Tuesday, January 22, 2019; but later in the interview admits she is aware "we are heading into a weekend." She is aware it is Fall, but initially wanted clarified "what side?"; implying her "friends all over the world" are experiencing different seasons. At one point in the interview, the patient states to this provider, "I want you to stay right there, but I want you to ask the questions now" - requesting that the liaison ask questions of her instead. Pt admits she was seeing a psychiatrist back home prior to her hospitalization at the [facility] - but pronounces a different name than she spells. She did sign a release for her mother in case additional history would be desired. Pt denied auditory and visual hallucinations at this time, stating "the only time people hear voices is when they are asleep." She denies other needs or concerns from our service, simply requesting that she be allowed to speak to her mother and brother over the phone today. Physical Exam Psychiatric Orientation: alert, oriented to person, oriented to place (reports she is in [place] at the hospital "[facility] oriented to time (reasonably oriented to time, thought is was 01/22/19 rather than true date) and cooperative Pt is alert and roughly oriented to person, place, and time - unable to provide exact information, but significantly more oriented that she was at admission. Apperance: appropriately dressed (in hospital gown) and + disheveled (hair is matted and messy) Eye Contact: good eye contact Motor Behavior: no abnormal motor movements (observed while reclined in bed) Speech: + abnormal rate/rhythm/volume of speech (irritably tone, pausing breifly between statements) At times, speech is fluid and coherent - other times, patient's speech is mechanical and rhythmic. This generally occurs in combination with a more irritable tone. Affect: euthymic affect, + labile affect (remains somewhat labile, but significantly reduced from initial evaluation) and + irritable affect (irritable edge) At times, patient appears irritated by questions being asked. This is contrasted by very pleasant demeanor with initial greetings and farewell wishes. Mood: no depressed mood Thought Process: + concrete thought process Thought process is significantly more organized, demonstrating less tangential thinking. She is able to follow progression of conversation, and history provided seems to be more reliable. Thought Content: not paranoid Does not verbalize any delusional thought content, though it is uncertain if patient's understanding of her condition and treatment is entirely reality based. Suicidal Thoughts: denies suicidal thoughts Hallucinations: no auditory hallucinations and no visual hallucinations Estimated Intelligence: + below average estimated intelligence Insight: + limited insight Judgement: + limited judgement Vital Signs (Past 24 Hours) Last Vital Signs Temp 36.6 C 01/20/19 05:48 Pulse 99 H 01/20/19 07:34 Resp 18 01/20/19 05:48 BP 137/77 01/20/19 05:48 Pulse Ox 95 01/20/19 05:48 Results & Data Current Inpatient Medications Current Inpatient Medications: Current Inpatient Medications Acetaminophen (Tylenol) 325 mg PO Q6H PRN PRN Reason: Pain or Fever Stop: 02/17/19 11:45 Last Admin: 01/20/19 06:21 Dose: 325 mg Documented by: Hydrocodone Bitart/Acetaminophen (Bertram 5/325) 1 tab PO Q6H MARIANN Stop: 01/30/19 21:59 Last Admin: 01/20/19 04:49 Dose: 1 tab Documented by: Albuterol (Ventolin Hfa) 2 puffs INH Q4H PRN PRN Reason: Shortness Of Breath Or Wheezing Stop: 02/15/19 21:34 Aripiprazole (Abilify) 15 mg PO HS MARIANN Stop: 02/15/19 21:34 Last Admin: 01/19/19 21:15 Dose: 15 mg Documented by: Aspirin (Aspirin Chew) 81 mg PO DAILY MARIANN Stop: 02/18/19 09:44 Last Admin: 01/20/19 07:47 Dose: 81 mg Documented by: Benztropine Mesylate (Cogentin) 1 mg PO BID MARIANN Stop: 02/15/19 21:34 Last Admin: 01/20/19 07:48 Dose: 1 mg Documented by: Chlorpromazine HCl (Thorazine) 100 mg PO HS PRN PRN Reason: agitation Stop: 02/15/19 21:34 Last Admin: 01/19/19 21:13 Dose: 100 mg Documented by: Diphenhydramine HCl (Benadryl Capsule) 50 mg PO HS PRN PRN Reason: agitation Stop: 02/15/19 21:34 Last Admin: 01/16/19 22:40 Dose: 50 mg Documented by: Escitalopram Oxalate (Lexapro Tab) 30 mg PO HS MARIANN Stop: 02/15/19 21:44 Last Admin: 01/19/19 21:14 Dose: 30 mg Documented by: Ferrous Sulfate (Feosol) 325 mg PO BID MARIANN Stop: 02/15/19 21:34 Last Admin: 01/20/19 07:47 Dose: 325 mg Documented by: Levothyroxine Sodium (Synthroid) 50 mcg PO DAILYBB [facility] Stop: 02/16/19 06:29 Last Admin: 01/20/19 05:50 Dose: 50 mcg Documented by: Lorazepam (Ativan) 1 mg PO TID MARIANN Stop: 02/15/19 21:34 Last Admin: 01/20/19 07:46 Dose: 1 mg Documented by: Nitroglycerin (Nitrostat) 0.4 mg SL UD PRN PRN Reason: Chest Pain Stop: 02/15/19 21:34 Pantoprazole Sodium (Protonix) 40 mg PO DAILY [facility] Stop: 02/16/19 08:59 Last Admin: 01/20/19 07:46 Dose: 40 mg Documented by: Polyethylene Glycol (Miralax Powder Packet) 17 gm PO DAILY PRN PRN Reason: Constipation Stop: 02/15/19 21:34 Last Admin: 01/18/19 09:19 Dose: 17 gm Documented by: Topiramate (Topamax) 100 mg PO DAILY MARIANN Stop: 02/16/19 08:59 Last Admin: 01/20/19 07:46 Dose: 100 mg Documented by: Mental Health & Subst Abuse Tx Psychiatrist [facility] Time of Appointment with Psychiatrist: likely to return to the [facility] after medical clearance Psychiatric Appointment Comment: Admitted for medical treatment on an active 304 inpatient commitment
--- NOTE | 2019-01-20 12:26 | Hospitalist Progress Note ---
Date of Service January 20, 2019 Assessment & Plan (1) Confusion: History of Depression and Anxiety History of Stroke in the past History of Migraine Headaches History of seizures -Medical records from [facility] of stroke evaluation in August 2016 have been reviewed -This is a patient from the [facility] facility under 304 with history of stroke in 2017 and because of progressive problems with behavioral health, patient was transferred for workup to rule out potentially reversible causes of confusion and behavioral health issues -Patient has been evaluated by inpatient psychiatry which is gathering patient's medical health records from the [facility] and noted that patient has failed trials of multiple anti-depressants and anti-psychotics -Patient also seen by neurology and brain MRI completed on 01/17/19 -Brain MRI shows chronic posterior left temporal infarct -Brain MRI also shows limited punctuate scattered subcortical and periventricular white matter which is described by radiologist as unusual for her age to have early chronic small vessel ischemic changes -patient's blood pressure appears to be normotensive -patient does appear to be on topiramate for migraines -echocardiogram is TTE but does not show evidence for cardiac emboli -patient's brother Mustapha affirms history of seizures of the patient, EEG performed and is read as normal -Lumbar puncture on 01/18/19 with normal opening pressure. Review of CSF WBC and CSF protein does not suggest meningitis. However, multiple reference labs from CSF are pending including viral or multiple sclerosis panels -aspirin restarted after lumbar puncture -normal B12, normal folate levels. serum RPR is nonreactive -serum Vitamin B1 (thiamine) levels pending -currently patient on escitalopram 30 mg qhs, aripiprazole 15 mg qhs, lorazepam 1 mg TID, benzotropine 1 mg BID, Diphenhydramine 30 mg qhs prn if agitation, chlorpromazine 100 mg qhs prn if agitation -as per nursing staff patient remains 1 to 1 observation because of [address] [facility] -inpatient psychiatry service does not recommend any changes to psychiatric medications. Hospitalist have expressed concerns that there is no clear cut psychiatric diagnosis -at this time, hospitalist does not have an "organic" cause of the confusion for which patient was initially admitted to the hospital from the [facility] nor can conclude any organic insults for which patient was placed under the [address] [facility] in the first place -01/20/19: Patient continues to be on 1 to 1. However, patient continues to be cooperative and follows the direction. She is pleasant. She was seen by hospitalist to be standing and walking with assistance with the walker with physical therapist. She was able to brush her teeth without prompting. Discussed with patient about awaiting further CSF lab results. Discussed with patient's mother Linsey on the phone about these plans. Discussed with manager of case management about contacting the [facility] by Wednesday01/23/19 if these test results are negative in which case then patient may return there under 304 to complete the psychiatric workup. Hypothyroidism -continue home dose Levothyroxine -TSH within euthyroid parameters Anemia -Hemoglobin stable as high 9s or 10 Fibromyalgia -pain control -PT/OT evaluations GERD -pantoprazole Patient wears medical wrist band including thoracic outlet syndrome DVT prophylaxis: SCDs for now, encourage ambulation Contacts: Linsey (mother) [phone], Yannick (father), Mustapha (brother, physician) [phone] Subjective Patient seen and examined today. She was initially sitting up in chair eating breakfast. Continues to be on 1 to 1. However, continues to be cooperative and follows the direction. She is pleasant. She was seen by hospitalist to be standing and walking with assistance with the walker with physical therapist. She was able to brush her teeth without prompting. Discussed with patient about awaiting further CSF lab results. Discussed with patient's mother Linsey on the phone about these plans. Discussed with manager of case management about contacting the [facility] by Wednesday01/23/19 if these test results are negative in which case then patient may return there under 304 to complete the psychiatric workup. Patient currently denies any visual or auditory hallucinations. denies acute pain today. breathing on room a Review of Systems Review of Systems: All systems reviewed & are unremarkable except as noted in HPI & below Physical Exam Eyes: PERRL, conjunctivae normal, anicteric sclerae EOM intact bilaterally ENMT: external ear and nose normal, oropharynx normal Neck: normal visual inspection Respiratory: normal respiratory effort, lungs clear to auscultation Cardiovascular: Rate/Rhythm: regular rate and regular rhythm Gastrointestinal (Abdomen): normal bowel sounds, soft, nontender, no hepatosplenomegaly Musculoskeletal: Head/Neck/Chest: normocephalic and head atraumatic Neurologic: moves all extremities Psychiatric: Orientation: alert and oriented x 3 Results & Data Vital Signs (Past 12 Hours) Vital Signs Temp Pulse Pulse Resp BP Pulse Ox 01/20/19 07:34 99 H 01/20/19 05:48 36.6 C 102 H 18 137/77 95 01/20/19 01:14 97 H
[2019-01-20] MEDS: ARIPiprazole 15 MG TAB PO SCH (21:34)
[2019-01-20] MEDS: ESCITALOPRAM OXALATE 10 MG TAB PO SCH (21:34)
[2019-01-20] MEDS: POLYETHYLENE (MIRALAX) 17 GM PACK PO PRN (22:13)
[2019-01-21] MEDS: CHLORPROMAZINE HCL 100 MG TABLET PO PRN (04:45)
[2019-01-21] MEDS: HYDROCODONE/ACETAMOPHEN 5/325MG TAB PO SCH ×4 (04:45→21:36)
[2019-01-21] MEDS: ASPIRIN 81 MG CHEW PO SCH (08:07)
[2019-01-21] MEDS: LORazepam 1 MG TAB PO SCH ×3 (08:07→20:45)
[2019-01-21] MEDS: FERROUS SULFATE 325 MG TAB PO SCH ×2 (08:07→20:46)
[2019-01-21] MEDS: TOPIRAMATE 100 MG TAB PO SCH (08:08)
[2019-01-21] MEDS: LEVOTHYROXINE SODIUM 50 MCG TABLET PO SCH (08:08)
[2019-01-21] MEDS: PANTOprazole 40 MG TAB PO SCH (08:08)
[2019-01-21] MEDS: BENZTROPINE MESYLATE 1 MG TAB PO SCH ×2 (08:08→20:46)
[2019-01-21] MEDS ORDERED: ACETAMINOPHEN 325 MG TAB PO STA (08:38)
--- NOTE | 2019-01-21 08:40 | Hospitalist Progress Note ---
Date of Service January 21, 2019 Assessment & Plan (1) Confusion: Encounter for screening examination for mental health and behavioral health disorders History of Depression and Anxiety History of Stroke in the past History of Migraine Headaches History of seizures -Medical records from [facility] of stroke evaluation in August 2016 have been reviewed -This is a patient from the [facility] under 304 with history of stroke in 2017 and because of progressive problems with behavioral health, patient was transferred for workup to rule out potentially reversible causes of confusion and behavioral health issues -Patient has been evaluated by inpatient psychiatry which is gathering patient's medical health records from the [facility] and noted that patient has failed trials of multiple anti-depressants and anti-psychotics -Patient also seen by neurology and brain MRI completed on 01/17/19 -Brain MRI shows chronic posterior left temporal infarct -Brain MRI also shows limited punctuate scattered subcortical and periventricular white matter which is described by radiologist as unusual for her age to have early chronic small vessel ischemic changes -patient's blood pressure appears to be normotensive -patient does appear to be on topiramate for migraines -echocardiogram is TTE but does not show evidence for cardiac emboli -patient's brother Mustapha affirms history of seizures of the patient, EEG performed and is read as normal -Lumbar puncture on 01/18/19 with normal opening pressure. Review of CSF WBC and CSF protein does not suggest meningitis. However, multiple reference labs from CSF are pending including viral or multiple sclerosis panels -aspirin restarted after lumbar puncture -normal B12, normal folate levels. serum RPR is nonreactive -serum Vitamin B1 (thiamine) levels pending -currently patient on escitalopram 30 mg qhs, aripiprazole 15 mg qhs, lorazepam 1 mg TID, benzotropine 1 mg BID, Diphenhydramine 30 mg qhs prn if agitation, chlorpromazine 100 mg qhs prn if agitation -as per nursing staff patient remains 1 to 1 observation because of 304 and from the [facility] -inpatient psychiatry service does not recommend any changes to psychiatric medications. Hospitalist have expressed concerns that there is no clear cut psychiatric diagnosis -at this time, hospitalist does not have an "organic" cause of the confusion/altered mental status for which patient was initially admitted to the hospital from the [facility] nor can conclude any organic insults for which patient was placed under the 304 to the [facility] in the first place -01/20/19: Patient continues to be on 1 to 1. However, patient continues to be cooperative and follows the direction. She is pleasant. She was seen by hospitalist to be standing and walking with assistance with the walker with physical therapist. She was able to brush her teeth without prompting. Discussed with patient about awaiting further CSF lab results. Discussed with patient's mother Linsey on the phone about these plans. Discussed with disability case manager about contacting the [facility] by Wednesday01/23/19 if these test results are negative in which case then patient may return there under 304 to complete the psychiatric workup. -01/21/19: patient appears to be more tangential in her speech today and quickly changes the subject of conversation. this is likely related to unclear behavioral health issues. But will send routine labs including ammonia level and liver function enzymes. try acetaminophen for headache Hypothyroidism -continue home dose Levothyroxine -TSH within euthyroid parameters Anemia -Hemoglobin stable as high 9s or 10 Fibromyalgia -pain control -PT/OT evaluations GERD -pantoprazole Patient wears medical wrist band including thoracic outlet syndrome DVT prophylaxis: SCDs for now, encourage ambulation Contacts: Linsey (mother) [phone], Yannick (father), Mustapha (brother, physician) [phone] Subjective Patient today appears to have more tangential thoughts. She initially complaining of generalized pain. She says she hurts over. But appears to be resting comfortably on the bed. Then when asked to localize her pain, she requests something stronger than Tylenol for headache. Physician counseled on trying Tylenol (acetaminophen) first. Then she asked the doctor to look at her leg, which have been addressed to her as a healed ulcer that was discussed on previous days. Then patient corrects herself and says that she remembers and attributes forgetfulness to history of stroke. Patient appears to express a generalized restlessness. She was encourage with nursing associate to get from bed to chair versus walking with walker in hallway. Then patient started to talk tangentially about being stuck in a toilet. visual training aide then comments that patient was on commode when patient's legs "fell asleep" and patient needed assistance previously. Then patient started talking about how a family member in the past was stuck in the toilet and needed emergency responders to help in that situation. Hospital doctor assured patient that she is closely monitored in the hospital and should not be afraid that assistance be far away. Review of Systems Review of Systems: All systems reviewed & are unremarkable except as noted in HPI & below Physical Exam Eyes: PERRL, conjunctivae normal, anicteric sclerae EOM intact bilaterally ENMT: external ear and nose normal, oropharynx normal Neck: normal visual inspection Respiratory: normal respiratory effort, lungs clear to auscultation Cardiovascular: Rate/Rhythm: regular rate and regular rhythm Gastrointestinal (Abdomen): normal bowel sounds, soft, nontender, no hepatosplenomegaly Musculoskeletal: Head/Neck/Chest: normocephalic and head atraumatic Neurologic: moves all extremities Psychiatric: Orientation: alert and oriented x 3 Thought Process: + tangential thought process Results & Data Vital Signs (Past 12 Hours) Vital Signs Pulse 01/21/19 07:39 96 H 01/21/19 00:00 88
[2019-01-21 09:42] LABS: INR 1.2 (0.9-1.1); Partial Thromboplastin Ratio 1.5; Partial Thromboplastin Time 40.8 Seconds (21.0-31.0); Prothrombin Time 12.1 Seconds (9.0-12.0)
[2019-01-21 09:48] LABS: BUN Creatinine Ratio 22.2 (10-20); Calcium 9.3 mg/dl (8.5-10.1); Creatinine Clr Calc Pharmacy 114.8 ml/min; Est GFR (African American) 125.6; Est GFR (Non-African American) 108.3; Magnesium 1.9 mg/dl (1.8-2.4); Potassium 3.5 mmol/L (3.5-5.1)
[2019-01-21 09:51] LABS: Albumin Globulin Ratio 0.8 (0.9-2); Bilirubin,Total 0.2 mg/dl (0.2-1); Globulin 3.6 gm/dl (2.5-4.0); Phosphorus 3.9 mg/dl (2.5-4.9); Total Protein 6.6 gm/dl (6.4-8.2)
[2019-01-21] MEDS ORDERED: LORazepam 0.25 MG/0.5 ML VIAL IV STA (11:11)
[2019-01-21 20:37] LABS: CMV DNA Qnt Real Time PCR <200 IU/mL (<200); CMV DNA Quant PCR <2.30 log IU/mL (<2.30); HSV Type 1 DNA Not Detected (Not Detected); HSV Type 1&2 DNA Source CSF; HSV Type 2 DNA Not Detected (Not Detected)
[2019-01-21] MEDS: ZOLPIDEM TARTRATE 5 MG TAB PO PRN (20:45)
[2019-01-21] MEDS: ESCITALOPRAM OXALATE 10 MG TAB PO SCH (20:45)
[2019-01-21] MEDS: ARIPiprazole 15 MG TAB PO SCH (20:46)
[2019-01-22] MEDS: HYDROCODONE/ACETAMOPHEN 5/325MG TAB PO SCH ×4 (04:09→21:47)
[2019-01-22] MEDS: ONDANSETRON INJ 2 MG/ML 2 ML VIAL IV PRN (06:26)
[2019-01-22] MEDS: LEVOTHYROXINE SODIUM 50 MCG TABLET PO SCH (06:27)
[2019-01-22] MEDS: ASPIRIN 81 MG CHEW PO SCH (08:00)
[2019-01-22] MEDS: FERROUS SULFATE 325 MG TAB PO SCH ×2 (08:00→21:48)
[2019-01-22] MEDS: BENZTROPINE MESYLATE 1 MG TAB PO SCH ×2 (08:00→21:49)
[2019-01-22] MEDS: LORazepam 1 MG TAB PO SCH ×3 (08:00→21:47)
[2019-01-22] MEDS: PANTOprazole 40 MG TAB PO SCH (08:01)
[2019-01-22] MEDS: TOPIRAMATE 100 MG TAB PO SCH (08:01)
[2019-01-22 10:26] LABS: Herpes Simplex Ab IgG-1 < 0.90 INDEX (< 0.90); Herpes Simplex Ab IgG-2 < 0.90 INDEX (< 0.90)
[2019-01-22] MEDS ORDERED: KETOROLAC TROMETHAMINE 15 MG/ML VIAL IV ONE (12:54)
[2019-01-22] MEDS ORDERED: SODIUM CHLORIDE 0.9% 1000ML 1,000 ML IV SCH (13:00)
[2019-01-22] MEDS ORDERED: GABAPENTIN 100 MG CAP PO STA (13:10)
[2019-01-22 13:46] LABS: BUN Creatinine Ratio 17.7 (10-20); Creatinine Clr Calc Pharmacy 93.9 ml/min; Est GFR (African American) 108.1; Est GFR (Non-African American) 93.2; Potassium 3.8 mmol/L (3.5-5.1)
[2019-01-22 13:48] LABS: Albumin Globulin Ratio 0.8 (0.9-2); Bilirubin,Total 0.2 mg/dl (0.2-1); Globulin 3.6 gm/dl (2.5-4.0); Total Protein 6.6 gm/dl (6.4-8.2)
--- NOTE | 2019-01-22 14:24 | Hospitalist Progress Note ---
Date of Service January 22, 2019 Assessment & Plan (1) Confusion: Encounter for screening examination for mental health and behavioral health disorders History of Depression and Anxiety History of Stroke in the past History of Migraine Headaches History of seizures -Medical records from [facility] of stroke evaluation in August 2016 have been reviewed -This is a patient from the [facility] under 304 with history of stroke in 2017 and because of progressive problems with behavioral health, patient was transferred for workup to rule out potentially reversible causes of confusion and behavioral health issues -Patient has been evaluated by inpatient psychiatry which is gathering patient's medical health records from the [facility] and noted that patient has failed trials of multiple anti-depressants and anti-psychotics -Patient also seen by neurology and brain MRI completed on 01/17/19 -Brain MRI shows chronic posterior left temporal infarct -Brain MRI also shows limited punctuate scattered subcortical and periventricular white matter which is described by radiologist as unusual for her age to have early chronic small vessel ischemic changes -patient's blood pressure appears to be normotensive -patient does appear to be on topiramate for migraines -echocardiogram is TTE but does not show evidence for cardiac emboli -patient's brother Mustapha affirms history of seizures of the patient, EEG performed and is read as normal -Lumbar puncture on 01/18/19 with normal opening pressure. Review of CSF WBC and CSF protein does not suggest meningitis. However, multiple reference labs from CSF are pending including viral or multiple sclerosis panels -aspirin restarted after lumbar puncture -normal B12, normal folate levels. serum RPR is nonreactive -serum Vitamin B1 (thiamine) levels pending -currently patient on escitalopram 30 mg qhs, aripiprazole 15 mg qhs, lorazepam 1 mg TID, benzotropine 1 mg BID, Diphenhydramine 30 mg qhs prn if agitation, chlorpromazine 100 mg qhs prn if agitation -as per nursing staff patient remains 1 to 1 observation because of 304 and from the [facility] -inpatient psychiatry service does not recommend any changes to psychiatric medications. Hospitalist have expressed concerns that there is no clear cut psychiatric diagnosis -at this time, hospitalist does not have an "organic" cause of the confusion/altered mental status for which patient was initially admitted to the hospital from the [facility] nor can conclude any organic insults for which patient was placed under the 304 to the [facility] in the first place -01/20/19: Patient continues to be on 1 to 1. However, patient continues to be cooperative and follows the direction. She is pleasant. She was seen by hospitalist to be standing and walking with assistance with the walker with physical therapist. She was able to brush her teeth without prompting. Discussed with patient about awaiting further CSF lab results. Discussed with patient's mother Linsey on the phone about these plans. Discussed with ed case manager about contacting the [facility] by Wednesday01/23/19 if these test results are negative in which case then patient may return there under 304 to complete the psychiatric workup. -01/21/19: patient appears to be more tangential in her speech today and quickly changes the subject of conversation. this is likely related to unclear behavioral health issues. But will send routine labs including ammonia level and liver function enzymes. try acetaminophen for headache Hypothyroidism -continue home dose Levothyroxine -TSH within euthyroid parameters Anemia -Hemoglobin stable as high 9s or 10 Fibromyalgia -pain control -PT/OT evaluations GERD -pantoprazole Patient wears medical wrist band including thoracic outlet syndrome DVT prophylaxis: SCDs for now, encourage ambulation Contacts: Linsey (mother) [phone], Yannick (father), Mustapha (brother, physician) [phone] Subjective Pt is lying in in bed, in no acute distress. Per nursing staff pt was agitated earlier today but after eating she was more calm. She is just about to get brain MRI. Pt denies any fever, chills, shortness of breath, chest pain, headache, change in vision, abd. pain, nausea or vomiting. She is pleasant overall but tangential in her answers, does not answer all questions appropriately. Physical Exam Eyes: PERRL, conjunctivae normal, anicteric sclerae EOM intact bilaterally ENMT: external ear and nose normal, oropharynx normal Neck: normal visual inspection Respiratory: normal respiratory effort, lungs clear to auscultation Cardiovascular: Rate/Rhythm: regular rate and regular rhythm Gastrointestinal (Abdomen): normal bowel sounds, soft, nontender, no hepatosplenomegaly Musculoskeletal: Head/Neck/Chest: normocephalic and head atraumatic Neurologic: moves all extremities Psychiatric: Orientation: alert and oriented x 3 Thought Process: + tangential thought process Results & Data Vital Signs (Past 12 Hours) Vital Signs Temp Pulse Pulse Resp BP Pulse Ox 01/22/19 11:06 36.8 C 96 H 18 106/69 92 01/22/19 07:21 36.8 C 90 20 114/66 100 01/22/19 07:08 88 01/22/19 03:58 36.5 C 87 18 116/77 95
--- NOTE | 2019-01-22 14:29 | Hospitalist Progress Note ---
Date of Service January 22, 2019 Assessment & Plan (1) Confusion: Encounter for screening examination for mental health and behavioral health disorders History of Depression and Anxiety History of Stroke in the past History of Migraine Headaches History of seizures -Medical records from [facility] of stroke evaluation in August 2016 have been reviewed -This is a patient from the [facility] under 304 with history of stroke in 2017 and because of progressive problems with behavioral health, patient was transferred for workup to rule out potentially reversible causes of confusion and behavioral health issues -Patient has been evaluated by inpatient psychiatry which is gathering patient's medical health records from the [facility] and noted that patient has failed trials of multiple anti-depressants and anti-psychotics -Patient also seen by neurology and brain MRI completed on 01/17/19 -Brain MRI shows chronic posterior left temporal infarct -Brain MRI also shows limited punctuate scattered subcortical and periventricular white matter which is described by radiologist as unusual for her age to have early chronic small vessel ischemic changes -patient's blood pressure appears to be normotensive -patient does appear to be on topiramate for migraines -echocardiogram is TTE but does not show evidence for cardiac emboli -patient's brother Mustapha affirms history of seizures of the patient, EEG performed and is read as normal -Lumbar puncture on 01/18/19 with normal opening pressure. Review of CSF WBC and CSF protein does not suggest meningitis. However, multiple reference labs from CSF are pending including viral or multiple sclerosis panels -aspirin restarted after lumbar puncture -normal B12, normal folate levels. serum RPR is nonreactive -serum Vitamin B1 (thiamine) levels pending -currently patient on escitalopram 30 mg qhs, aripiprazole 15 mg qhs, lorazepam 1 mg TID, benzotropine 1 mg BID, Diphenhydramine 30 mg qhs prn if agitation, chlorpromazine 100 mg qhs prn if agitation -as per nursing staff patient remains 1 to 1 observation because of 304 and from the [facility] -inpatient psychiatry service does not recommend any changes to psychiatric medications. Hospitalist have expressed concerns that there is no clear cut psychiatric diagnosis -at this time, hospitalist does not have an "organic" cause of the confusion/altered mental status for which patient was initially admitted to the hospital from the [facility] nor can conclude any organic insults for which patient was placed under the 304 to the [facility] in the first place -01/20/19: Patient continues to be on 1 to 1. However, patient continues to be cooperative and follows the direction. She is pleasant. She was seen by hospitalist to be standing and walking with assistance with the walker with physical therapist. She was able to brush her teeth without prompting. Discussed with patient about awaiting further CSF lab results. Discussed with patient's mother Linsey on the phone about these plans. Discussed with pillowcase maker about contacting the [facility] by Wednesday01/23/19 if these test results are negative in which case then patient may return there under 304 to complete the psychiatric workup. -01/21/19: patient appears to be more tangential in her speech today and quickly changes the subject of conversation. this is likely related to unclear behavioral health issues. But will send routine labs including ammonia level and liver function enzymes. try acetaminophen for headache -01/22/19: Patient seen today. As per nurse, patient has been having complaints of generalized pain. When seen by medical doctor, patient appeared restless and her complaints of generalized pain including pain radiating to her hair. Patient's brother also on the phone with patient at the time. 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 Medical doctor to try trial of gabapentin. Patient also to be given IV fluids with IV Toradol. normal creatinine kinase on labs. Hypothyroidism -continue home dose Levothyroxine -TSH within euthyroid parameters Anemia -Hemoglobin stable as high 9s or 10 Fibromyalgia -pain control -PT/OT evaluations GERD -pantoprazole Patient wears medical wrist band including horacic outlets syndrome and reflux sympathetic dystrophy DVT prophylaxis: SCDs for now, encourage ambulation Contacts: Linsey (mother) [phone], Yannick (father), Mustapha (brother, physician) [phone] - Patient's brother have inquired about power of civil rights attorney paperwork (hospitalist will discuss with case management Subjective Patient seen today. As per nurse, patient has been having complaints of generalized pain. When seen by medical doctor, patient appeared restless and her complaints of generalized pain including pain radiating to her hair. Patient's brother also on the phone with patient at the time. 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 Medical doctor to try trial of gabapentin. Patient also to be given IV fluids with IV Toradol. normal creatinine kinase on labs. Physical Exam Constitutional: + in distress Eyes: PERRL, conjunctivae normal, anicteric sclerae EOM intact bilaterally ENMT: external ear and nose normal, oropharynx normal Neck: normal visual inspection Respiratory: normal respiratory effort, lungs clear to auscultation Cardiovascular: Rate/Rhythm: regular rate and regular rhythm Gastrointestinal (Abdomen): normal bowel sounds, soft, nontender, no hepatosplenomegaly Musculoskeletal: Head/Neck/Chest: normocephalic and head atraumatic Neurologic: PERRL, EOMI, accommodation nl, no face palsy, no dysarthria Psychiatric: Orientation: alert distressed from reported pain Results & Data Vital Signs (Past 12 Hours) Vital Signs Temp Pulse Pulse Resp BP Pulse Ox 01/22/19 11:06 36.8 C 96 H 18 106/69 92 01/22/19 07:21 36.8 C 90 20 114/66 100 01/22/19 07:08 88 01/22/19 03:58 36.5 C 87 18 116/77 95
[2019-01-22] MEDS: ACETAMINOPHEN 325 MG TAB PO PRN (15:49)
[2019-01-22] MEDS ORDERED: KETOROLAC TROMETHAMINE 15 MG/ML VIAL IV PRN (16:40)
[2019-01-22] MEDS ORDERED: ZOLPIDEM TARTRATE 5 MG TAB PO PRN (16:44)
[2019-01-22] MEDS: ESCITALOPRAM OXALATE 10 MG TAB PO SCH (21:47)
[2019-01-22] MEDS: ARIPiprazole 15 MG TAB PO SCH (21:48)
[2019-01-22] MEDS: GABAPENTIN 100 MG CAP PO SCH (21:50)
[2019-01-23] MEDS: ZOLPIDEM TARTRATE 5 MG TAB PO PRN (00:10)
[2019-01-23] MEDS: ACETAMINOPHEN 325 MG TAB PO PRN (02:03)
[2019-01-23] MEDS: CHLORPROMAZINE HCL 100 MG TABLET PO PRN (03:13)
[2019-01-23] MEDS: LEVOTHYROXINE SODIUM 50 MCG TABLET PO SCH (03:50)
[2019-01-23] MEDS: HYDROCODONE/ACETAMOPHEN 5/325MG TAB PO SCH ×3 (03:50→16:15)
[2019-01-23] MEDS: ONDANSETRON INJ 2 MG/ML 2 ML VIAL IV PRN (06:38)
[2019-01-23] MEDS: GABAPENTIN 100 MG CAP PO SCH (09:00)
[2019-01-23] MEDS: ASPIRIN 81 MG CHEW PO SCH (09:00)
[2019-01-23] MEDS: TOPIRAMATE 100 MG TAB PO SCH (09:00)
[2019-01-23] MEDS: BENZTROPINE MESYLATE 1 MG TAB PO SCH (09:00)
[2019-01-23] MEDS: PANTOprazole 40 MG TAB PO SCH (09:00)
[2019-01-23] MEDS: FERROUS SULFATE 325 MG TAB PO SCH (09:00)
[2019-01-23] MEDS: LORazepam 1 MG TAB PO SCH ×2 (09:00→14:45)
[2019-01-23] MEDS ORDERED: LORazepam 0.25 MG/0.5 ML VIAL IV STA (13:20)
[2019-01-23] MEDS ORDERED: HALOPERIDOL LACTATE 5 MG/ML 1 ML VIAL IV STA (13:41)
--- NOTE | 2019-01-23 13:45 | Hospitalist Progress Note ---
Date of Service January 23, 2019 Assessment & Plan (1) Confusion: Encounter for screening examination for mental health and behavioral health disorders History of Depression and Anxiety History of Stroke in the past History of Migraine Headaches History of seizures -Medical records from [facility] of stroke evaluation in August 2016 have been reviewed -This is a patient from the [facility] under 304 with history of stroke in 2017 and because of progressive problems with behavioral health, patient was transferred for workup to rule out potentially reversible causes of confusion and behavioral health issues -Patient has been evaluated by inpatient psychiatry which is gathering patient's medical health records from the [facility] and noted that patient has failed trials of multiple anti-depressants and anti-psychotics -Patient also seen by neurology and brain MRI completed on 01/17/19 -Brain MRI shows chronic posterior left temporal infarct -Brain MRI also shows limited punctuate scattered subcortical and periventricular white matter which is described by radiologist as unusual for her age to have early chronic small vessel ischemic changes -patient's blood pressure appears to be normotensive -patient does appear to be on topiramate for migraines -echocardiogram is TTE but does not show evidence for cardiac emboli -patient's brother Mustapha affirms history of seizures of the patient, EEG performed and is read as normal -Lumbar puncture on 01/18/19 with normal opening pressure. Review of CSF WBC and CSF protein does not suggest meningitis. However, CSF reference labs: no HSV, no CMV -normal B12, normal folate levels. serum RPR is nonreactive -serum Vitamin B1 (thiamine) levels pending -as per nursing staff patient remains 1 to 1 observation because of 304 and from the [facility] -01/20/19: Patient continues to be on 1 to 1. However, patient continues to be cooperative and follows the direction. She is pleasant. She was seen by hospitalist to be standing and walking with assistance with the walker with physical therapist. She was able to brush her teeth without prompting. Discussed with patient about awaiting further CSF lab results. Discussed with patient's mother Linsey on the phone about these plans. Discussed with outpatient case manager about contacting the [facility] by Wednesday01/23/19 if these test results are negative in which case then patient may return there under 304 to complete the psychiatric workup. -01/21/19: patient appears to be more tangential in her speech today and quickly changes the subject of conversation. this is likely related to unclear behavioral health issues. But will send routine labs including ammonia level and liver function enzymes. try acetaminophen for headache -01/22/19: Patient seen today. As per nurse, patient has been having complaints of generalized pain. When seen by medical doctor, patient appeared restless and her complaints of generalized pain including pain radiating to her hair. Patient's brother also on the phone with patient at the time. 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 Medical doctor to try trial of gabapentin. Patient also to be given IV fluids with IV Toradol. normal creatinine kinase on labs. 01/23/19: Patient seen and examined in the room this AM after waking up from sleep. Patient seen this AM with outpatient case manager with normal physical exam and discussions were with her about plans for hospital discharge to the [facility] under the 304 as most the CSF reference labs returning as negative.. Patient also was explained that her family members have been participating with calls from hospital doctor and outpatient case manager. communication manager informed patient that her brother Mustapha wanted her be able to release medical information to [facility] in case these institutions would participate in patient's future mental health evaluations. Patient appeared to have good understanding and signed the forms. Medical doctor left the room. Subsequently, later in the day, medical doctor informed that patient was very agitated and that she was banging on the bed rails and pushing staff members away. Patient was seen with inpatient psychiatry liaison. Orders were made for Ativan 0.25 mg IV. Psychiatry liaison notified psychiatry physician. Orders placed for Haldol 5 mg IV x 1 -for much of hospital course to date as of 01/23/19, patient on escitalopram 30 mg qhs, aripiprazole 15 mg qhs, lorazepam 1 mg TID, benzotropine 1 mg BID, Diphenhydramine 30 mg qhs prn if agitation, chlorpromazine 100 mg qhs prn if agitation Hypothyroidism -continue home dose Levothyroxine -TSH within euthyroid parameters Anemia -Hemoglobin stable as high 9s or 10 Fibromyalgia -pain control -PT/OT evaluations GERD -pantoprazole Patient wears medical wrist band including horacic outlets syndrome and reflux sympathetic dystrophy DVT prophylaxis: SCDs for now, encourage ambulation Contacts: Linsey (mother) [phone], Yannick (father), Mustapha (brother, beata wilson) [phone] - Patient's brother have inquired about power of workers compensation defense attorney paperwork (hospitalist will discuss with case management Subjective Patient seen and examined in the room this AM after waking up from sleep. Patient seen this AM with outpatient case manager with normal physical exam and discussions were with her about plans for hospital discharge to the [facility] under the 304 as most the CSF reference labs returning as negative. Patient also was explained that her family members have been participating with calls from hospital doctor and outpatient case manager. communication manager informed patient that her brother Mustapha wanted her be able to release medical information to [facility] in case these institutions would participate in patient's future mental health evaluations. Patient appeared to have good understanding and signed the forms. Medical doctor left the room. Subsequently, later in the day, medical doctor informed that patient was very agitated and that she was banging on the bed rails and pushing staff members away. Patient was seen with inpatient psychiatry liaison. Orders were made for Ativan 0.25 mg IV. Psychiatry liaison notified psychiatry physician. Orders placed for Haldol 5 mg IV x 1 Physical Exam Constitutional: + combative Eyes: PERRL, conjunctivae normal, anicteric sclerae EOM intact bilaterally ENMT: external ear and nose normal, oropharynx normal Neck: normal visual inspection Respiratory: normal respiratory effort, lungs clear to auscultation Cardiovascular: Rate/Rhythm: regular rate and regular rhythm Gastrointestinal (Abdomen): normal bowel sounds, soft, nontender, no hepatosplenomegaly Musculoskeletal: Head/Neck/Chest: normocephalic and head atraumatic Neurologic: PERRL, EOMI, accommodation nl, no face palsy, no dysarthria Psychiatric: Orientation: alert Results & Data Vital Signs (Past 12 Hours) Vital Signs Pulse 01/23/19 07:27 107 H
[2019-01-23] MEDS ORDERED: HYDROmorphone INJ 1 MG/ML SYRINGE IV STA (15:34)
[2019-01-23] MEDS ORDERED: HYDROmorphone INJ 1 MG/ML SYRINGE IV ONE (15:36)
[2019-01-23] MEDS ORDERED: HYDROmorphone INJ 1 MG/ML SYRINGE ONE (15:38)
--- NOTE | 2019-01-23 16:13 | Discharge Summary ---
Date of Service January 23, 2019 Admission HPI Per Admitting Provider Jess Leonard is a 43-year-old female admitted medically on 01/16/2019 after presenting to the ED from the [facility]. ED documentation suggest the family had been visiting the patient and was concerned about unusual behaviors and confusion. Family had requested transfer to a medical facility for further workup. Patient is not able to provide reliable history at this time; however, hospital documentation has been reviewed. Upon entering patient's room, she is found to be speaking comfortably with her one-to-one aide. Patient invites this provider to sit with them and talks more. Patient states that she is not aware as to why she was admitted, but does know that she had been hospitalized at the [facility] prior to coming to the hospital. She is unaware of how long she has been at the [facility]. Patient is rather tangential during our conversation, often interrupting this provider with request that this provider squeeze a stress ball that has been provided to her. Patient informs this provider that when she squeezes the stress ball it says "bull sh*t." This provider stated that although she believes that the patient hears this, this provider does not hear the same response to squeezing the stress ball. Patient becomes abruptly tearful and upset stating "you do not believe me, you do not believe me." This provider's attempted to console the patient, which did not not offer much benefit. Between a one-to-one aide and this provider, multiple attempts were made to assist patient with calming her breathing and participating in a clear conversation. Patient states that she has a group of friends she calls "[employer]", she becomes abruptly irritable when this provider states she is not sure what that is and asks the patient to explain more. Patient states that this is a group of people that she talks to online, but is unwilling to provide any additional information. The patient suddenly request that her brother be called in the presence of this provider, was not able to understand that this provider did not have a release or her brother's phone number at that moment in time. Patient was asked at that time if she had signed a release for us to speak with her brother, to which she becomes rather angry stating "he has signed the hippo, and I am a zebra." She begins to tell this provider that zebras are black if you "rub them the other way." She then demands her belongings, showing this provider a T-shirt with an iguana pictured on the front. As if quizzing this provider, she demands to know "if you could be any animal, what would it be? And tell me why. And tell me what color. Then tell me what animal I would be." This provider attempted to answer the patient's question, and asked the patient what animal she would be. Patient becomes acutely angry and upset, telling her one-to-one aide that this provider "did not pass the test." She continues to request to return to the [facility], stating "I want to go back there. That is where my dad is. I miss him so much." Patient remained labile, demonstrating tearfulness, anger, and anxiety during the remainder of our visit. As it was clear this provider's questions were upsetting the patient, this provider decided to end the session. Admission Exam Per Admitting Provider PHYSICAL EXAMINATION: GENERAL: The patient is alert and awake, oriented to name and place only. VITAL SIGNS: Temperature 36.7, pulse 87, respiratory rate 20, blood pressure 136/74 and oxygen 96% on room air. HEENT: No pallor. No icterus. Pupils are sluggish to react to light. NECK: No JVD. No neck masses. No carotid bruits. Supple. CARDIOVASCULAR: S1, S2 heard. Murmur in aortic area is heard. LUNGS: Clear to auscultation bilaterally. No accessory muscle use. No wheezing. No crackles. ABDOMEN: Soft. Bowel sounds present. No distention. No guarding. No rigidity. CENTRAL NERVOUS SYSTEM: Alert and awake and oriented x2. Moves extremities. No pronator drift. Coordination of movements normal. Hqfmqi-ch-wfsw test normal. Yhbj-ys-bedn test. Position sense intact. Sensation is intact. EXTREMITIES: No edema. No erythema. Principal Diagnosis Encounter for screening examination for mental health and behavioral health disorders, Confusion, History of Stroke, History of Seizure, History of Migraine, Fibromyalgia, Hypothyroidism (on thyroid supplementation) Discharge Exam Constitutional nursing aides in the room keeping patient calm Eyes PERRL, conjunctivae normal, anicteric sclerae EOM intact bilaterally ENMT external ear and nose normal, oropharynx normal Neck normal visual inspection Respiratory normal respiratory effort, lungs clear to auscultation Cardiovascular Rate/Rhythm: regular rhythm Gastrointestinal (Abdomen) normal bowel sounds, soft, nontender, no hepatosplenomegaly Musculoskeletal Head/Neck/Chest: normocephalic and head atraumatic Neurologic PERRL, EOMI, accommodation nl, no face palsy, no dysarthria Psychiatric Orientation: alert Discharge Data Allergies Allergy/AdvReac Type Severity Reaction Status Date / Time Iodine and Iodide Containing Allergy Severe Anaphylaxis Unverified 01/17/19 11:00 Produc red dye Allergy Severe Anaphylaxis Unverified 01/17/19 11:02 latex Allergy Intermediate Rash Unverified 01/17/19 11:02 shellfish derived Allergy Intermediate Rash Unverified 01/17/19 11:02 Consultations 01/16/19 18:59 ED Decision to Admit Stat 01/16/19 21:35 Consult Case Management - Discharge Planning Routine 01/17/19 08:00 Consult Neurology Routine Consult Psychiatry Routine 01/18/19 12:40 Consult Radiology Routine Ordered Studies 01/16/19 16:14 CT head/brain wo con Stat 01/17/19 01:31 MR brain wo/w con Urgent 01/18/19 14:03 FL lumbar puncture diagnostic Routine Hospital Course (1) Confusion: Encounter for screening examination for mental health and behavioral health disorders History of Depression and Anxiety History of Stroke in the past History of Migraine Headaches History of seizures -Medical records from [facility] of stroke evaluation in August 2016 have been reviewed -This is a patient from the [facility] under 304 with history of stroke in 2017 and because of progressive problems with behavioral health, patient was transferred for workup to rule out potentially reversible causes of confusion and behavioral health issues -Patient has been evaluated by inpatient psychiatry which is gathering patient's medical health records from the [facility] and noted that patient has failed trials of multiple anti-depressants and anti-psychotics -Patient also seen by neurology and brain MRI completed on 01/17/19 -Brain MRI shows chronic posterior left temporal infarct -Brain MRI also shows limited punctuate scattered subcortical and periventricular white matter which is described by radiologist as unusual for her age to have early chronic small vessel ischemic changes -patient's blood pressure appears to be normotensive -patient does appear to be on topiramate for migraines -echocardiogram is TTE but does not show evidence for cardiac emboli -patient's brother Mustapha affirms history of seizures of the patient, EEG performed and is read as normal -Lumbar puncture on 01/18/19 with normal opening pressure. Review of CSF WBC and CSF protein does not suggest meningitis. However, CSF reference labs: no HSV, no CMV -normal B12, normal folate levels. serum RPR is nonreactive -as per nursing staff patient remains 1 to 1 observation because of [address] [facility] -01/20/19: Patient continues to be on 1 to 1. However, patient continues to be cooperative and follows the direction. She is pleasant. She was seen by hospitalist to be standing and walking with assistance with the walker with physical therapist. She was able to brush her teeth without prompting. Discussed with patient about awaiting further CSF lab results. Discussed with patient's mother Linsey on the phone about these plans. Discussed with patient case coordinator about contacting the [facility] by Wednesday01/23/19 if these test results are negative in which case then patient may return there under 304 to complete the psychiatric workup. -01/21/19: patient appears to be more tangential in her speech today and quickly changes the subject of conversation. this is likely related to unclear behavioral health issues. But will send routine labs including ammonia level and liver function enzymes. try acetaminophen for headache -01/22/19: Patient seen today. As per nurse, patient has been having complaints of generalized pain. When seen by medical doctor, patient appeared restless and her complaints of generalized pain including pain radiating to her hair. Patient's brother also on the phone with patient at the time. 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 Medical doctor to try trial of gabapentin. Patient also to be given IV fluids with IV Toradol. normal creatinine kinase on labs. 01/23/19: Patient seen and examined in the room this AM after waking up from sleep. Patient seen this AM with patient case coordinator with normal physical exam and discussions were with her about plans for hospital discharge to the [facility] under the 304 as most the CSF reference labs returning as negative.. Patient also was explained that her family members have been participating with calls from hospital doctor and patient case coordinator. transport company manager informed patient that her brother Mustapha wanted her be able to release medical information to [facility] and [facility] in case these institutions would participate in patient's future mental health evaluations. Patient appeared to have good understanding and signed the forms. Medical doctor left the room. Subsequently, later in the day, medical doctor informed that patient was very agitated and that she was banging on the bed rails and pushing staff members away. Patient was seen with inpatient psychiatry liaison. Orders were made for Ativan 0.25 mg IV. Psychiatry liaison notified psychiatry physician. Orders placed for Haldol 5 mg IV x 1 -for much of hospital course to date as of 01/23/19, patient on escitalopram 30 mg qhs, aripiprazole 15 mg qhs, lorazepam 1 mg TID, benzotropine 1 mg BID, Diphenhydramine 30 mg qhs prn if agitation, chlorpromazine 100 mg qhs prn if agitation Patient is to be discharged to back to [facility] in [place], [place] under pre-existing 304 for further workup of mental health. Patient's new medication on discharge is gabapentin 100 mg BID for possible neuropathic pain. Patient completed Lumbar puncture with negative test results during hospital stay. There are some remaining reference labs such as CSF Lyme, CSF West Nile, CSF VDRL, CSF IgOligoclonal, Enterovirus labs, HHV-6 DNA lab, Vitamin B1. However with generally negative organic, medical workup for her mental health, it is unlikely that remaining unresulted labs will be positive Hypothyroidism -continue home dose Levothyroxine -TSH within euthyroid parameters Anemia -Hemoglobin stable as high 9s or 10 Fibromyalgia -pain control -PT/OT evaluations were completed GERD -pantoprazole Patient wears medical wrist band including horacic outlets syndrome and reflux sympathetic dystrophy DVT prophylaxis: SCDs for now, encourage ambulation Contacts: Linsey (mother) [phone], Yannick (father), Mustapha (brother, physician) [phone] - Patient's brother have inquired about power of mergers and acquisitions attorney paperwork (hospitalist will discuss with case management Total Time Total Time Spent Total Time Spent (In Minutes): 40 minutes Total Time Includes: Examination of the Patient, Discharge Planning, Medication Reconciliation and Communication With Other Providers Discharge Plan Discharge Items Patient Disposition: Transfer Behavioral Health Fac Reason For Visit: CONFUSION Discharge Diagnosis: Encounter for screening examination for mental health and behavioral health disorders, Confusion, History of Stroke, History of Seizure, History of Migraine, Fibromyalgia, Hypothyroidism (on thyroid supplementation) Condition on Discharge: Fair Activity: Per Instructions section Non-emergency contact: Psychiatrist Call non-emergency contact if: you have any medication questions Follow-up/Referrals: PCP,NO [Primary Care Provider] - Diet: Regular Addtl Attending Provider Instructions: Patient is to be discharged to back to [facility] in [place], [place] under pre-existing 304 for further workup of mental health. Patient's new medication on discharge is gabapentin 100 mg BID for possible neuropathic pain. Patient completed Lumbar puncture with negative test results during hospital stay. There are some remaining reference labs such as CSF Lyme, CSF West Nile, CSF VDRL, CSF IgOligoclonal, Enterovirus labs, HHV-6 DNA lab, Vitamin B1. However with generally negative organic, medical workup for her mental health, it is unlikely that remaining unresulted labs will be positive Pending Studies at Discharge: Yes (CSF Lyme,CSF West Nile,CSF VDRL,CSF IgOligoclonal,Enterovirus lab,HHV-6) Stand-Alone Forms: My [facility] Skilled Items Lines: None Medications and DC Order Prescriptions: New gabapentin 100 mg Capsule 100 mg PO BID 30 Days Qty: 60 RF: 0 Continued pantoprazole [Protonix] 40 mg Tablet,Delayed Release (Dr/Ec) 40 mg PO DAILY RF: 0 lorazepam 1 mg Tablet 1 mg PO TID RF: 0 topiramate 100 mg Tablet 100 mg PO DAILY RF: 0 chlorpromazine 100 mg Tablet 100 mg PO DIRECTED PRN (Reason: agitation) RF: 0 diphenhydramine HCl [Benadryl] 25 mg Capsule 50 mg PO DIRECTED PRN (Reason: agitation) RF: 0 escitalopram oxalate 20 mg Tablet 30 mg PO HS RF: 0 ferrous sulfate 325 mg (65 mg iron) Tablet 325 mg PO BID RF: 0 hydrocodone-acetaminophen [Herndon] 5-325 mg Tablet 1 tab PO Q6H RF: 0 levothyroxine [Synthroid] 50 mcg Tablet 50 mcg PO DAILY RF: 0 aripiprazole [Abilify] 15 mg Tablet 15 mg PO HS RF: 0 Cogentin 1 mg 1 mg PO BID RF: 0 Discharge Orders: Discharge Order (Routine); Ordered 01/23/19 Ordered By: Toney Enriquez Admission Data Admit Date/Time: 01/16/19 20:31 Attending Provider: Toney Enriquez Admit Provider: Tylor Espinal Primary Care Provider: PCP,NO Other Providers: Christian Corona ; Sarah Conteh ; Jose Johnson ; Sarah Granger ; Ray Langston ; Ct Urena ; Regina Parrish ; Yessenia Hernandez ; Fritz Boss ; Miguelina Durham ; Marcelino Lu ; Pedro Mckinley ; Laron Gordillo ; José Miguel Freeman ; Mary Jo Quezada ; Shaw Kessler ; Reyes Hernandez ; Rosetta Power ; Kaushik Evangelista ; Todd Gauthier ; Samara Khanna ; Negrito Escobar ; José Miguel Higuera ; Elliott Smiley ; Mustapha Ortiz ; Krish Langston ; Benoit Meeks ; Joao Jimenez ; Rosemary,Zandra P
== END 2019-01-23 19:43 | DRG 948 ==
LOC: ED 15:08 → SUATTDRO 20:31 → 2W 20:31